=== PATIENT | female | born 1945 | race Caucasian/White ===

== ENCOUNTER 2020-08-20 09:51 | Outpatient (CLI) | payer MEDICARE, MEDICAID, SELFPAY ==
--- NOTE | 2020-08-20 12:21 | ONC CON_ITS ---
Dr. Kumari New Patient Note Patient: Donita Cam Unit #: [id number]: 1945 Dicatated By: Pierre Kumari M.D.Date of Visit: Aug 20, 2020 Onc MED New Patient/Consult Referring Physician: Wu Phelan Chief Complaint: Hepatocellular cancer. History of Present Illness: This is a 75-year-old woman who was recently confirmed to have metastatic hepatocellular carcinoma by biopsy of an abdominal wall nodule. 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 She was then found on surveillance CT scan in June 2019 to have a 1.7 cm segment 8 liver lesion. Biopsy of the liver on 07/17/2019 showed moderately differentiated hepatocellular carcinoma. She underwent intraoperative ablation of the liver lesion on 08/06/2019. Her surveillance CT scans of the neck and chest on 08/04/2020 showed no evidence of disease. MRI of the abdomen on 08/05/2020 showed increase in a segment 2 liver lesion and a new segment 7 lesion, suspicious for disease progression. Also noted was increasing size of a right abdominal wall lesion. Biopsy of the abdominal wall soft tissue on 08/12/2020 was positive for metastatic hepatocellular carcinoma. She had a follow-up visit with her medical oncologist at [facility], Dr. Mckenna Cruz, on 08/18/2020. She was recommended to begin palliative treatment with atezolizumab in combination with bevacizumab. She is seen here today because she would like to receive her treatment closer to home. She complains that she has been feeling tired. Some of that she attributes to being very anxious and not sleeping well. Her ECOG score is 1. Her appetite has not been good. Her weight had dropped to as low as 81 pounds following initial treatment for the hepatocellular cancer, but she had regained up to 95 pounds. She is now back down a few pounds. She does not have fever or night sweats. She says she is usually freezing to . 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 She does tend to have to cough up a lot of saliva, but she does not have difficulty swallowing. She has some shortness of breath associated with underlying COPD. She does not complain of chest pain. She has not been having nausea. She does have acid reflux, but it is adequately managed with medication. Bowel and bladder function have been okay other than she occasionally does not empty her bladder completely. She has some joint pain, mainly in the hands. She does not complain of headache. She sometimes has dizzy spells. She tends to get numbness/tingling in her feet when she is driving longer distances. She has no other focal neurologic symptoms. She is having significant anxiety and depression. Past Medical History: She has been treated for squamous cell carcinoma of the supraglottic larynx and for hepatocellular carcinoma. Her other medical history includes anxiety/depression, chronic obstructive pulmonary disease, degenerative arthritis, gastroesophageal reflux disease, and right carpal tunnel syndrome. Past Surgical History: Her surgical/procedural history includes bilateral cataract excisions, bladder sling, tubal ligation, colonoscopy in 2019, and hysterectomy/bilateral salpingo-oophorectomy in 1990. Medications: Albuterol Sulfate 2 Puff(s) (of 108 (90 base) mcg/act) Aerosol Powder, Breath Activated Inhalation q 6 hours PRN, Amitriptyline HCl 1 (25 mg) Tablet Oral ac pm, Centrum 1 Tablet, chewable Oral daily, Famotidine 1 (40 mg) Tablet Oral daily, Meclizine HCl 1 (25 mg) Tablet Oral q 6 to 8 hours PRN, Omeprazole 1 (20 mg) Tablet, enteric coated Oral daily, Stiolto Respimat (2.5-2.5 mcg/act) Aerosol, solution Inhalation daily, Vitamin E 1 (1000 Units) Tablet, chewable Oral daily Allergies: No Known Allergies. Social History: Ms. Cam is . She has history of smoking 1 pack of cigarettes daily. She had cut down to 1/2 pack/day, but she recently increased again. She had previously drank alcohol on weekends, but she quit that at least 10 to 15 years ago. Family History: Ms. Cam's mother at age 67: stroke. Ms. Cam's father at age 62: lung cancer. Ms. Cam has 1 sister who is : lung cancer. Father of lung cancer at age 63. Mother of stroke at age 68. A sister of lung cancer at age 42. A son at age 33, apparently with multiorgan failure, specific underlying cause not determined. Review Of Symptoms: Constitutional - She has generally not been feeling well. She is very tired. She is able to do some light housework. Her appetite has decreased and her weight is stable. No fever, night sweats, or hot flashes. She has frequent chills. ECOG score is 1, Eyes - No recent change in vision, ENMT - She developed hearing loss following her chemotherapy. She also complains of tinnitus. She has sinus congestion/drainage. She has dry mouth. No sore throat or difficulty swallowing. She has hoarseness, Hematologic/Lymphatic - She bruises easily, Respiratory - She gets short of breath with an type of activity. She has a chronic cough. No pleuritic pain or hemoptysis, Cardiovascular - No angina pain. No palpitations, Gastrointestinal - No nausea or vomiting. Her heartburn is adequately managed with famotidine and omeprazole. No diarrhea or constipation. No blood in the stool or black stools, Genitourinary (F) - No dysuria or hematuria. No urinary frequency. No urgency or incontinence. She has frequent episodes of her bladder not completely emptying, Musculoskeletal - She has some joint pain, mainly in her hands, Integumentary - No skin eruption, Neurologic - No headache or dizziness. She sometimes has numbness/tingling in her feet. No other focal neurologic symptoms, Psychiatric - She has a lot of anxiety, she sometimes has amitriptyline. She also has depression. She does not sleep well. Vital Signs: Performed on Aug 20, 2020 11:09: 0, 17.80 (LOW), 1.37 sq.m, 61 in, 93 % (LOW), 99 /min, 17 /min, 120/71 mm(hg), 97.5 F (LOW), and 94.2 lbs (HIGH). Physical Examination: Constitutional - She looks pretty good generally, Eyes - Sclerae nonicteric. Conjunctivae clear, ENMT - No lesions noted in the oral cavity, Neck - No mass or thyromegaly, Hematologic/Lymphatic - No cervical, clavicular, or axillary adenopathy, Respiratory - Lungs are clear with diminished air movement bilaterally, Cardiovascular - Heart rhythm is regular. There is no murmur, gallop, or rub noted, Abdomen - Soft and non-tender. There is a small subcutaneous nodule palpable in the medial aspect of the right upper quadrant. Liver and spleen are not enlarged. There is no abdominal mass or ascites noted and there is no inguinal adenopathy, Back/Spine - No spine or CVA tenderness noted, Extremities - No edema. Dorsalis pedis pulses are palpable bilaterally, Integumentary - No rashes. No suspicious skin lesions noted, Neurologic - No focal neurologic deficits noted. Problem List: 1. Metastatic hepatocellular carcinoma with biopsy-proven involvement in the right anterior abdominal wall. There is also suspected recurrence in the liver by MRI. 2. She had undergone intraoperative ablation of the primary hepatocellular carcinoma in July 2019. 3. 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 She completed radiation in December 2018. 4. COPD. 5. GERD. 6. Degenerative arthritis. 7. Anxiety/depression. Problems Addressed with this Encounter and Plan: 1. Metastatic hepatocellular carcinoma with biopsy-proven involvement in the right anterior abdominal wall. There is also suspected recurrence in the liver by MRI. She has been recommended to begin a trial of palliative systemic therapy with atezolizumab in combination with bevacizumab. She is in need of Port-A-Cath for venous access, and I have arranged for her to see Dr. Short today for surgical consultation. She will return for cycle 1 of atezolizumab soon as the port is in place. Bevacizumab will be added with cycle 2. I again reviewed side effects associated with both treatments, though she has been through this already with Dr. Cruz. 2. She has significant anxiety/depression. I will have her start citalopram 10 mg daily and she also will be given a prescription for alprazolam 0.25 mg to take up to 3 times daily as needed. Signed By: Pierre Kumari M.D. <<Signature on File>>
[2020-08-21 14:07] LABS: Coronavirus Test Green County Not Detected
== END 2020-08-20 09:52 | disposition home or self-care (01) ==
LOC: ONCMED 09:57
PROVIDERS: Family Provider Physician Assistant Medical; PCP Physician Assistant Medical; Visit Provider Internal Medicine Medical Oncology
DX: C22.0 Liver cell carcinoma (principal); C79.89 Secondary malignant neoplasm of other specified sites; C32.1 Malignant neoplasm of supraglottis; Z20.822 Contact with and (suspected) exposure to COVID-19; J44.9 Chronic obstructive pulmonary disease, unspecified; K21.9 Gastro-esophageal reflux disease without esophagitis; F41.8 Other specified anxiety disorders; F17.210 Nicotine dependence, cigarettes, uncomplicated; Z92.3 Personal history of irradiation; Z92.21 Personal history of antineoplastic chemotherapy; Z79.899 Other long term (current) drug therapy
CPT/HCPCS: 87635; 99204

== ENCOUNTER 2020-08-25 09:49 | Day surgery (SDC) | payer MEDICARE, MEDICAID, SELFPAY ==
[2020-08-22 11:52] VITALS: BMI 17.5
--- NOTE | 2020-08-25 | SCC_ITS ---
Procedure Done: Right subclavian vein PowerPort placement 6.6 seconds of fluoroscopic guidance, for a cumulative dose of 0.39 mGy, was provided to Dr. Short by the radiology department. C-arm images of the chest were saved for the patient's permanent record. [facility]
--- NOTE | 2020-08-25 09:59 | SC_ITS ---
WS: [id number] INTRAOPERATIVE TECHNIQUE: 2 Spot fluoroscopic images for intraoperative purposes. FLUOROSCOPY TIME: 6.6 seconds CLINICAL INFORMATION: Powerport Placement COMPARISON: None. FINDINGS: Right Port-A-Cath with tip in distal SVC. No pneumothorax. SC/C-arm FL for CVA [id number] IMPRESSION: Images obtained for intraoperative purposes.
[2020-08-25 10:05] VITALS: BP 134/80; PULSE 86; RESP 18; TEMP 36.5; O2SAT 96
[2020-08-25] MEDS: sodium chloride 0.9% 1,000 ML 30 ML IV (10:33)
--- NOTE | 2020-08-25 11:33 | ANES.PREANE2 ---
Pre-Anesthetic Assessment Pre-Anesthetic Assessment: Height/Weight: Height 1.55 m Weight 42.184 kg Temp Pulse Resp BP Pulse Ox 97.7 F 86 18 134/80 96 08/25/20 10:05 08/25/20 10:05 08/25/20 10:05 08/25/20 10:05 08/25/20 10:05 Preop Diagnosis: Hepatocellular carcinoma Proposed Procedure: Operation Date: 08/25/20 12:00 Proposed Procedures p Portacath Placement 08765 C22.0(Not Applicable) - Odell Short MD Was Beta Wild taken within 24 hours: N/A Last intake: Intake Last Liquid Date 08/24/20 Last Liquid Time 22:00 Last Solid Date 08/24/20 Last Solid Time 22:00 Social: Social History: Tobacco and No alcohol Exam: Pre-Anes Outpt Exam: alert, oriented x 3 and regular rate & rhythm Additional Exam Findings (including area of procedure): decreased, rhonchi Airway: Submandibular: Other (H/o head and neck radiation) Cervical ROM: WNL MP: 2 Additional comments: upper edentulous Pulmonary: Pulmonary: COPD Neuropsych: Neuropsych: Anxiety Anesthetic Plan: ASA status: 3 Anesthesia: MAC Risk of > 500 ml blood loss (7ml/kg in children): No Meds/Allergies Current Medications: Current Medications Generic Name Dose Route Start Last Admin Trade Name Freq PRN Reason Stop Dose Admin Sodium Chloride 1,000 mls @ 30 ml s/hr 08/25/20 10:00 08/25/20 10:33 Sodium Chloride 0.9% IV 08/26/20 09:59 30 mls/hr .Q24H BREANNA Administration PFSH Anesthesia PFSH: Social History Smoking and tobacco status: current every day smoker Second hand smoke exposure: No Alcohol intake: never Lives independently: Yes Data Anesthesia Cardiac Studies: No Data to Display
--- NOTE | 2020-08-25 11:53 | W.PM.OPSUD ---
Surgery/Procedure H&P Update DATE OF PROCEDURE: August 25, 2020 DATE H&P PERFORMED: 08/20/20 H&P UPDATE INFORMATION: I have reviewed H&P completed within last 30 days, I have examined patient prior to procedure and No changes to prior documentation PREOP DIAGNOSIS: Hepatocellular carcinoma PRIMARY INDICATION FOR PROCEDURE: The same PLANNED PROCEDURE: Operation Date: 08/25/20 12:00 Proposed Procedures p Portacath Placement 39297 C22.0(Not Applicable) - Odell Short MD
[2020-08-25] MEDS: lidocaine 2% INJ 20 mL INJECTION (12:44)
[2020-08-25] MEDS: heparin, porcine 1,000 unit/mL INJ 10 mL 10000 UNIT INJECTION (12:45)
--- NOTE | 2020-08-25 12:46 | P.OP_ITS ---
Operative Report Date of procedure: August 25, 2020 Pre-op Diagnosis: Hepatocellular carcinoma Post-op diagnosis: same Procedure Done: Right subclavian vein PowerPort placement under fluoroscopic guidance with interpretation of the fluoroscopy was done by me through the whole entire procedure. Implants: Right subclavian vein PowerPort placement Surgeon: Odell Short Machine Pecan Gatherer: Jess Hope Circulating nurse Cori Anesthesia: MAC (metal engineering process worker Mariposa) Estimated blood loss (mL): 5 Condition: stable Disposition: same day Brief History: Plan of care; After thorough history physical examination and reviewing the chart and reviweing the images with my personal intrepretation.I counseled the patient for Port-A-Cath placement, indications, risks including pneumothorax that may require Chest tube(s) placement and potential injury of major vascular structures that may require Thoractomy, benefits,indications and alternatives were all discussed with the patient, patient understands and is interested to proceed. Rationale was carefully and clearly discussed with the patient.Appropriate informed consent have been reviewed and signed. Procedure: Patient was identified in the holding area and taken to the operative room and placed in supine position IV propofol was given by the anesthesia provider ,both arms were tucked,Time-out was done verifying the patient's name/date of /planned procedure and destination after the procedure, all were in agreement. SCDs confirmed to be functioning, preoperative antibiotics administered per protocol, and beta wood protocol was confirmed, appropriate positioning of the patient was done by me. Medications were reviewed to assess for anticoagulant usage. Risks and benefits and prevention of central line associated blood stream infection (CLABSI) were discussed with the patient/CPOA, and a consent was obtained. Monitors were in place and monitored throughout the procedure. All necessary supplies were available prior to start. Hand hygiene was completed prior to starting. Maximum barrier technique was utilized including a sterile gown, sterile gloves with a hat and mask. Site was was prepped with [chlorhexidine] and a full body drape was placed. 5 mL of 2% lidocaine was injected into the skin with a 25 gauge needle. Prep& drape was done under the usual sterile technique, lidocaine 2% was injected at the site of the stick, started by the Right subclavian stick that retrieved venous blood was obtained from the first stick, a guidewire was then threaded and under the guidance of fluoroscopy position was confirmed to be in the IVC and my interpretation, there was no PVC changes, at that point the guidewire was secured to the drapes with a hemostat and the needle was taken out, attention was then deviated towards creation of a pocket for the port were lidocaine 2% was injected using an 15 blade knife skin incision was created dissection using the Bovie to create a pocket for the Port-A-Cath to be accommodated, hemostasis was secured, after the port being appropriately flushed it was inserted into the pocket and a tunneler was used to accommodate the catheter of the port cath to be delivered through the incision first created at the site of the stick, at that point under fluoroscopy an estimated length was measured for the catheter and was cut at the designed level, followed by that a dilator with the sheath introduced onto the guidewire the dilator and the wire were retrieved and the catheter of the port was introduced via the sheath where it was peeled off and the catheter maintained to be in the SVC that was confirmed with fluoroscopy, and the fluoroscopy interpretation was done by me throughout the entire procedure. The port was kept in its pocket,3-0 Vicryl deep subdermal interrupted sutures, skin was then closed by 4-0 Monocryl as subcuticular closure. The stick site was closed by 3-0 Vicryl and surgical glue was used followed by dressing. Patient tolerated the procedure well was taken to the recovery area Count was correct at the end of the procedure I was present for the whole entire procedure Position of the catheter was checked with a postoperative chest x-ray and it was in good position without evidence of pneumothorax
--- NOTE | 2020-08-25 12:50 | XRR_ITS ---
PROCEDURE INFORMATION: Exam: XR Chest, 1 View Exam date and time: 08/25/2020 1:10 PM Age: 75 years old Clinical indication: Device placement; Other: Subclavian powerport placement; Additional info: Status post right subclavian powerport placement TECHNIQUE: Imaging protocol: XR of the chest Views: 1 view. COMPARISON: No relevant prior studies available. FINDINGS: Lungs: Unremarkable. No consolidation. Pleural spaces: Unremarkable. No pleural effusion. No pneumothorax. Heart/Mediastinum: Unremarkable. No cardiomegaly. Bones/joints: There is a thoracolumbar spine scoliosis. There are bilateral old healing clavicle the fractures. There is a right subclavian catheter whose tip is in the superior vena cava. XR/XR chest 1V portable [id number] IMPRESSION: There is a right subclavian catheter whose tip is in the superior vena cava.
[2020-08-25 13:00] VITALS: BP 113/64; PULSE 77; RESP 18; TEMP 36.3; O2SAT 92
[2020-08-25 13:39] VITALS: BP 150/83; PULSE 74; RESP 18; TEMP 36.5; O2SAT 98
[2020-08-25 14:00] LABS: Add Urine Microscopic? NO
[2020-08-25 14:25] LABS: Bilirubin Urine Neg (Negative); Blood Urine Neg (Negative); Glucose Urine UA Norm (Normal); Ketones Urine Negative (Negative); Leukocyte Esterase Urine Negative (Negative); Nitrate Urine Negative (Negative); Protein Urine Neg (Negative); Specific Gravity, Urine 1.015 (1.005-1.030); Urine Appearance Clear (CLEAR); Urine Color Yellow (Yellow); Urobilinogen Urine Norm (Negative); pH Urine 6 (5-7)
[2020-08-25 16:14] LABS: Basophils % 0.7 %; Eosinophils # 0.1 10^3/uL (0.0-0.8); Hemoglobin 13.1 g/dL (11.5-15.3); Lymphocytes # 2.3 10^3/uL (0.8-4.8); Lymphocytes % 39.6 %; Mean Platelet Volume 10.8 fL (7.4-10.4); Monocytes # 0.5 10^3/uL (0.2-0.9); Monocytes % 7.8 %; Neutrophils # 2.93 10^3/uL (1.8-7.7); Neutrophils % 50.7 %; Nucleated Red Blood Cells % 0 %; Platelet Count 179 10^3/cmm (130-400); Red Cell Distribution Width 13.1 % (12.1-15.1); White Blood Count 5.8 10^3/uL (4.0-10.0)
--- NOTE | 2020-08-25 16:15 | ANE.PACU2 ---
Inpatient post-anesthesia follow up: Airway intact: Yes Vital signs: Temperature 97.7 F Pulse Rate 74 Respiratory Rate 18 Blood Pressure 150/83 Pulse Oximetry 98 Oxygen Delivery Me thod Room Air Oxygen Flow Rate Fraction of Inspir ed Oxygen Hydration adequate: Yes Nausea and vomiting: No Pain level: 2 Mental status: Baseline
[2020-08-25 16:33] LABS: Thyroid Stimulating Hormone 9.19 uIU/mL (0.27-4.20); Tumor Marker Alpha Fetoprotein 104.9 ng/mL (0-8.3)
[2020-08-25 16:44] LABS: Alanine Aminotransferase 12 U/L (0-33); Alkaline Phosphatase 68 IU/L (35-105); Anion Gap 11.2 (5-19); Aspartate Amino Transferase 15 U/L (0-32); Blood Urea Nitrogen 11 mg/dL (8-23); Calcium 8.4 mg/dL (8.5-10.5); Carbon Dioxide 29 mmol/L (22-29); Chloride 104 mmol/L (98-107); Globulin 2.5 g/dL (1.3-4.6); Glucose 93 mg/dL (65-115); Osmolality Calculated 289 mOsm/kg (285-295); Potassium 4.2 mmol/L (3.5-5.1); Sodium 140 mmol/L (136-145); Total Bilirubin 0.2 mg/dL (0.15-1.2); Total Protein 6.5 g/dL (6.6-8.7)
== END 2020-08-25 14:03 | disposition home or self-care (01) ==
PROVIDERS: Internal Medicine Medical Oncology; Family Provider Physician Assistant Medical; PCP Physician Assistant Medical; Visit Provider Surgery
PROC: (CPT 36561; principal; 2020-08-25 12:00)
DX: C22.0 Liver cell carcinoma (principal); J44.9 Chronic obstructive pulmonary disease, unspecified; F41.9 Anxiety disorder, unspecified; F17.210 Nicotine dependence, cigarettes, uncomplicated
CPT/HCPCS: 36561; 12345; 71045; 77001; 80053; 81003; 82105; 84443; 85025; C1788; J0690; J1644; J2250; J2405; J2704; J3010; J7030

== ENCOUNTER 2020-09-08 13:25 | Outpatient (CLI) | payer MEDICARE, MEDICAID, SELFPAY ==
[2020-09-08 14:43] LABS: Basophils % 0.6 %; Eosinophils # 0.1 10^3/uL (0.0-0.8); Eosinophils % 1.8 %; Hematocrit 38.3 % (37.0-47.0); Hemoglobin 12.7 g/dL (11.5-15.3); Lymphocytes # 1.5 10^3/uL (0.8-4.8); Mean Corpuscular HGB Conc 33.2 g/dL (30.0-36.0); Mean Corpuscular Volume 96.5 fL (81-99); Mean Platelet Volume 10.2 fL (7.4-10.4); Monocytes # 0.6 10^3/uL (0.2-0.9); Monocytes % 10.1 %; Neutrophils # 3.84 10^3/uL (1.8-7.7); Neutrophils % 62.3 %; Nucleated Red Blood Cells % 0 %; Platelet Count 197 10^3/cmm (130-400); Red Blood Count 3.97 10^6/uL (4.1-5.3); White Blood Count 6.2 10^3/uL (4.0-10.0)
[2020-09-08 14:58] LABS: Alanine Aminotransferase 11 U/L (0-33); Albumin Level 4.3 g/dL (3.5-5.2); Alkaline Phosphatase 65 IU/L (35-105); Anion Gap 12.4 (5-19); Aspartate Amino Transferase 17 U/L (0-32); Blood Urea Nitrogen 6 mg/dL (8-23); Carbon Dioxide 29 mmol/L (22-29); Chloride 102 mmol/L (98-107); Globulin 2.5 g/dL (1.3-4.6); Glucose 119 mg/dL (65-115); Osmolality Calculated 289 mOsm/kg (285-295); Potassium 3.4 mmol/L (3.5-5.1); Sodium 140 mmol/L (136-145); Total Bilirubin 0.2 mg/dL (0.15-1.2); Total Protein 6.8 g/dL (6.6-8.7)
[2020-09-08] MEDS: sodium chloride 0.9% 250 ML 75 ML IV (16:20)
--- NOTE | 2020-09-14 20:21 | ONC FU_ITS ---
[facility] Patient Note Patient: Donita Cam Unit #: [id number]: 1945 Dictated By: Khushboo MonsivaisDate of Visit: Sep 08, 2020 Onc MED Follow-Up/Prog Note Chief Complaint: Hepatocellular cancer. History of Present Illness: Ms Cam is a 75-year-old woman who was recently confirmed to have metastatic hepatocellular carcinoma by biopsy of an abdominal wall nodule. 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 She was then found on surveillance CT scan in June 2019 to have a 1.7 cm segment 8 liver lesion. Biopsy of the liver on 07/17/2019 showed moderately differentiated hepatocellular carcinoma. She underwent intraoperative ablation of the liver lesion on 08/06/2019. Her surveillance CT scans of the neck and chest on 08/04/2020 showed no evidence of disease. MRI of the abdomen on 08/05/2020 showed increase in a segment 2 liver lesion and a new segment 7 lesion, suspicious for disease progression. Also noted was increasing size of a right abdominal wall lesion. Biopsy of the abdominal wall soft tissue on 08/12/2020 was positive for metastatic hepatocellular carcinoma. She had a follow-up visit with her medical oncologist at [facility], Dr. Mckenna Cruz, on 08/18/2020. She was recommended to begin palliative treatment with atezolizumab in combination with bevacizumab. She was seen by Dr Kumari on August 20, 2020 because she would like to receive her treatment closer to home. She had noted that her weight had dropped to as low as 81 pounds following initial treatment for the hepatocellular cancer, but she had regained up to 95 pounds. She is now back down a few pounds. 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 She does tend to have to cough up a lot of saliva, but she does not have difficulty swallowing. She has some shortness of breath associated with underlying COPD. She does have acid reflux, but it is adequately managed with medication. Bowel and bladder function have been okay other than she occasionally does not empty her bladder completely. She has some joint pain, mainly in the hands. She tends to get numbness/tingling in her feet when she is driving longer distances. She was having significant anxiety and depression. She was started on citalopram 10 mg daily and states that this has been helping. She is also using alprazolam 0.25 mg up to 3 times a day as needed. She states that she has really felt much better since starting these medications. She states that she did have Port-A-Cath placement with Dr. Short on 08/25/2020. She states it is healing well. Mrs. Cam is here today for follow-up. She is due to start her first dose of Tecentriq. She is aware that we will add Avastin with cycle 2. She denies any fever or chills. She states that her acid reflux continues to be controlled well. She states her appetite is better. She denies any new pain. Her activity has improved slowly but she states she is actually doing things around the house and outside when the weather is good. She denies any diarrhea or constipation. She denies any new shortness of breath orthopnea. She denies any chest pain or palpitations. She has had no nausea. Her sleeping overall is better as well. Her ECOG is 1. Past Medical History: Anxiety/depression Chronic obstructive pulmonary disease Degenerative arthritis Gastroesophageal reflux disease Right carpal tunnel syndrome Past Surgical History: Bilateral cataract excisions Bladder sling Tubal ligation Colonoscopy in 2019 Hysterectomy/bilateral salpingo-oophorectomy in 1990 Allergies: No Known Allergies. Medications: Albuterol Sulfate 2 Puff(s) (of 108 (90 base) mcg/act) Aerosol Powder, Breath Activated Inhalation q 6 hours PRN Amitriptyline HCl 1 (25 mg) Tablet Oral ac pm Centrum 1 Tablet, chewable Oral daily Famotidine 1 (40 mg) Tablet Oral daily Meclizine HCl 1 (25 mg) Tablet Oral q 6 to 8 hours PRN Omeprazole 1 (20 mg) Tablet, enteric coated Oral daily Stiolto Respimat (2.5-2.5 mcg/act) Aerosol, solution Inhalation daily Vitamin E 1 (1000 Units) Tablet, chewable Oral daily Family History: Ms. Cam's mother at age 67: stroke. Ms. Cam's father at age 62: lung cancer. Ms. Cam has 1 sister who is : lung cancer. Father of lung cancer at age 63. Mother of stroke at age 68. A sister of lung cancer at age 42. A son at age 33, apparently with multiorgan failure, specific underlying cause not determined. Social History: Ms. Cam is . She is a daily smoker who has smoked 1.0 pack/day for 55 years. She has no history of drinking. She has indicated exposure to the following products: cigarettes. She has history of smoking 1 pack of cigarettes daily. She had cut down to 1/2 pack/day, but she recently increased again. She had previously drank alcohol on weekends, but she quit that at least 10 to 15 years ago. Review Of Symptoms: Constitutional Denies fevers, chills, night sweats, excessive fatigue or weight loss. Allergic/Immunologic No reactions. Eyes Denies significant visual changes. No diplopia. No amaurosis. ENMT Denies changes in hearing, sore throat, mouth sores, difficulty or changes in swallowing ability, and/or sinus drainage. Hematologic/Lymphatic Denies easy bruising or bleeding. The patient denies any tender or palpable lymph nodes. Respiratory Denies dyspnea on exertion, chest pain, cough or hemoptysis. Denies orthopnea. Cardiovascular Denies anginal chest pain, palpitations or orthopnea. Gastrointestinal Denies nausea, vomiting, diarrhea, GI bleeding, or constipation. Denies change in bowel habits and/or stool color, no heartburn or early satiety. Genitourinary (F) No hematuria, hesitancy, incontinence, vaginal bleeding, discharge or other problems with urination. Musculoskeletal Denies joint pain, swelling or redness. No decreased range of motion. Integumentary Denies chronic rashes, inflammation, ulcerations or skin changes. Neurologic Denies headache, blurred vision, and no areas of focal weakness or numbness. Normal gait. No sensory problems. Psychiatric Denies insomnia, depression, siddharth or mood swings. Vital Signs: Performed on Sep 08, 2020 17:20 Height - 61.00 in Temperature - 98.2 F (LOW) Pulse - 75 /min Respiration - 18 /min BP - 120/70 mm(hg) O2 Sat - 95 % (LOW) Pain - 0 Fatigue - 0 Performed on Sep 08, 2020 15:26 Height - 61.00 in Weight - 92.8 lbs (LOW) BSA - 1.36 sq.m BMI - 17.53 (LOW) Temperature - 99.5 F (HIGH) Pulse - 86 /min Respiration - 18 /min BP - 122/72 mm(hg) O2 Sat - 94 % (LOW) Pain - 0 Fatigue - 2,1 - No physically strenuous activity, but ambulatory and able to carry out light or sedentary work (e.g. office work, light house work). (ECOG) Physical Examination: Constitutional Alert, oriented, no acute distress. Skin pink, warm and dry. Head Normocephalic; atraumatic. Eyes Conjunctivae and sclerae are clear and without icterus. Pupils are reactive and equal. Neck Supple without masses or thyromegaly. No jugular venous distension. Hematologic/Lymphatic No petechiae or purpura. No tender or palpable lymph nodes in the cervical or supraclavicular areas. Respiratory Lungs are clear to auscultation without rhonchi or wheezing. Cardiovascular Regular rate and rhythm of heart without murmurs,clicks, gallops or rubs. Abdomen Non-tender, non-distended, no masses or ascites. Good bowel sounds noted in all quads. No guarding or rebound tenderness. No pulsatile masses. Back/Spine Non-tender to palpation. Extremities No visible deformities, no cyanosis, clubbing or edema. Musculoskeletal No tenderness or swelling, normal range of motion without obvious weakness. Integumentary No rashes or lesions. Neurologic No sensory or motor deficits, normal cerebellar function, normal gait. Psychiatric Alert and oriented times three. Coherent speech. Verbalizes understanding of our discussions today. Laboratory:Test performed on Sep 08, 2020 14:15 Sodium 140 mmol/L Potassium 3.4 mmol/L Chloride 102 mmol/L CO2 29 mmol/L Anion Gap 12.4 BUN 6 mg/dL Creatinine 0.4 mg/dL Cr Clearance (Est) 83.2300 mL/min Glucose 119 mg/dL Osmolality - Calculated 289 mOsm/kg Calcium 9.0 mg/dL Protein, Total 6.8 g/dL Albumin 4.3 g/dL Globulin 2.5 g/dL Bilirubin, Total 0.2 mg/dL ALT (SGPT) 11 U/L AST (SGOT) 17 U/L Alkaline Phosphatase 65 IU/L WBC 6.2 10 3/uL RBC 3.97 10 6/uL HGB 12.7 g/dL HCT 38.3 % MCV 96.5 fL MCH 32.0 pg MCHC 33.2 g/dL RDW 13.0 % Platelet Count 197 10 3/cmm MPV 10.2 fL Neutrophils 3.84 10 3/uL Lymphocytes 1.5 10 3/uL Monocytes 0.6 10 3/uL Eosinophils 0.1 10 3/uL Basophils 0.0 10 3/uL Neutrophil % 62.3 % Lymphocyte % 25.0 % Monocyte % 10.1 % Eosinophil % 1.8 % Basophils % 0.6 % NRBC % 0 % Impression: 1. Metastatic hepatocellular carcinoma with biopsy-proven involvement in the right anterior abdominal wall. There is also suspected recurrence in the liver by MRI. 2. She had undergone intraoperative ablation of the primary hepatocellular carcinoma in July 2019. 3. 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 She completed radiation in December 2018. 4. COPD. 5. GERD. 6. Degenerative arthritis. 7. Anxiety/depression. Plan: PROBLEMS ADDRESSED TODAY 1. Metastatic hepatocellular carcinoma with biopsy-proven involvement in the right anterior abdominal wall. There is also suspected recurrence in the liver by MRI. She has been recommended to begin a trial of palliative systemic therapy with atezolizumab in combination with bevacizumab. She had placement of arit subclavian Power Port-A-Cath for venous access by Dr Short on 08/25/2020. A. Proceed with cycle 1 of atezolizumab today. Bevacizumab will be added with cycle 2. B. Standard antiemetics at home for nausea as needed. C. Labs from today reviewed in detail discussed with Mrs. Cam and a copy was given to her. White count 6.2, hemoglobin 12.7, platelets 197 ANC is 3840. Potassium 3.4 random glucose 119 creatinine 0.4 LFTs are normal. Her weight is documented at 92.8 pounds today. 2. She has significant anxiety/depression. A. Currently controlled with citalopram 10 mg daily and alprazolam 0.25 mg 3 times daily. B. She denies any intent to harm herself or others. She states she is feeling much better overall. 3. Follow-up plan A. We will plan to see her back in 3 weeks with CBC CMP and baseline UA for Avastin monitoring. B. Mrs. Cam has been encouraged to contact us in the interim should questions or problems arise. 4. Education regarding treatment plan: Specific side effects of Tecentriq discussed included but not limited to: Infusion reactions such as anaphylaxis, hives, shortness of breath, difficulty swallowing, fever, chills, hypotension hypertension, tremors/shakes, and anxiety amongst others Pneumonitis: new or worsening cough; chest pain; and shortness of breath. Colitis: diarrhea or more bowel movements than usual; blood in stools or dark, tarry, sticky stools; and severe stomach area (abdomen) pain or tenderness. Hepatitis: jaundice; severe nausea or vomiting; pain on the right side of the abdomen; drowsiness; dark urine; bleeding or bruise more easily than normal. Nephritis and kidney failure: including decrease in the amount of urine; hematuria; lower extremity edema; and loss of appetite. Pancreatitis; hyperglycemia. Thyroid and pituitary changes that may include: headaches that will not go away or unusual headaches; extreme tiredness, weight gain or weight loss; changes in mood or behavior, such as decreased sex drive, irritability, or forgetfulness; dizziness or fainting; hair loss; feeling cold; constipation; and voice gets deeper. Rash; changes in eyesight; severe or persistent muscle or joint pains; and severe muscle weakness. Greater than 50 minutes was spent on this visit in review of records and plan of care prior to the visit, face to face in review of plan of care, side effect identification and management with Ms Cam and post visit documentation. Signed By: Khushboo Monsivais-, AOCNP Pierre Kumari MD <<Signature on File>>
== END 2020-09-08 13:26 | disposition home or self-care (01) ==
LOC: ONCMED 13:29
PROVIDERS: PCP Physician Assistant Medical; Visit Provider Internal Medicine Medical Oncology
DX: Z51.11 Encounter for antineoplastic chemotherapy (principal); C22.0 Liver cell carcinoma; C79.89 Secondary malignant neoplasm of other specified sites; C32.1 Malignant neoplasm of supraglottis; F17.210 Nicotine dependence, cigarettes, uncomplicated; F41.8 Other specified anxiety disorders; Z79.899 Other long term (current) drug therapy
CPT/HCPCS: 80053; 85025; 96413; 99215; J7050; J9022

== ENCOUNTER 2020-09-18 05:53 | Outpatient (CLI) | payer MEDICARE, MEDICAID, SELFPAY ==
[2020-09-18 09:07] LABS: Basophils % 0.5 %; Eosinophils # 0.1 10^3/uL (0.0-0.8); Eosinophils % 1.1 %; Hematocrit 39.7 % (37.0-47.0); Hemoglobin 12.9 g/dL (11.5-15.3); Lymphocytes # 1.4 10^3/uL (0.8-4.8); Lymphocytes % 22.2 %; Mean Corpuscular HGB Conc 32.5 g/dL (30.0-36.0); Mean Corpuscular Hemoglobin 32.2 pg (28.0-34.0); Monocytes # 0.6 10^3/uL (0.2-0.9); Monocytes % 9.2 %; Neutrophils # 4.06 10^3/uL (1.8-7.7); Neutrophils % 66.7 %; Nucleated Red Blood Cells % 0 %; Platelet Count 202 10^3/cmm (130-400); Red Blood Count 4.01 10^6/uL (4.1-5.3); Red Cell Distribution Width 13.2 % (12.1-15.1); White Blood Count 6.1 10^3/uL (4.0-10.0)
[2020-09-18 09:28] LABS: Alanine Aminotransferase 11 U/L (0-33); Albumin Level 4.3 g/dL (3.5-5.2); Alkaline Phosphatase 79 IU/L (35-105); Anion Gap 11.8 (5-19); Aspartate Amino Transferase 19 U/L (0-32); Blood Urea Nitrogen 6 mg/dL (8-23); Calcium 9.2 mg/dL (8.5-10.5); Carbon Dioxide 29 mmol/L (22-29); Chloride 97 mmol/L (98-107); Globulin 2.5 g/dL (1.3-4.6); Glucose 95 mg/dL (65-115); Osmolality Calculated 275 mOsm/kg (285-295); Potassium 3.8 mmol/L (3.5-5.1); Sodium 134 mmol/L (136-145); Thyroid Stimulating Hormone 4.58 uIU/mL (0.27-4.20); Total Bilirubin 0.4 mg/dL (0.15-1.2); Total Protein 6.8 g/dL (6.6-8.7)
--- NOTE | 2020-09-18 10:58 | ONC FU_ITS ---
[facility] Patient Note Patient: Donita Cam Unit #: [id number]: [id number] Dictated By: Khushboo MonsivaisDate of Visit: Sep 18, 2020 Onc MED Follow-Up/Prog Note Chief Complaint: Hepatocellular cancer. History of Present Illness: Ms Cam is a 75-year-old woman who was recently confirmed to have metastatic hepatocellular carcinoma by biopsy of an abdominal wall nodule. 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 She was then found on surveillance CT scan in June 2019 to have a 1.7 cm segment 8 liver lesion. Biopsy of the liver on 07/17/2019 showed moderately differentiated hepatocellular carcinoma. She underwent intraoperative ablation of the liver lesion on 08/06/2019. Her surveillance CT scans of the neck and chest on 08/04/2020 showed no evidence of disease. MRI of the abdomen on 08/05/2020 showed increase in a segment 2 liver lesion and a new segment 7 lesion, suspicious for disease progression. Also noted was increasing size of a right abdominal wall lesion. Biopsy of the abdominal wall soft tissue on 08/12/2020 was positive for metastatic hepatocellular carcinoma. She had a follow-up visit with her medical oncologist at [facility], Dr. Mckenna Cruz, on 08/18/2020. She was recommended to begin palliative treatment with atezolizumab in combination with bevacizumab. She was seen by Dr Kumari on August 20, 2020 because she would like to receive her treatment closer to home. She had noted that her weight had dropped to as low as 81 pounds following initial treatment for the hepatocellular cancer, but she had regained up to 95 pounds. She is now back down a few pounds. 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 She does tend to have to cough up a lot of saliva, but she does not have difficulty swallowing. She has some shortness of breath associated with underlying COPD. She does have acid reflux, but it is adequately managed with medication. Bowel and bladder function have been okay other than she occasionally does not empty her bladder completely. She has some joint pain, mainly in the hands. She tends to get numbness/tingling in her feet when she is driving longer distances. She was having significant anxiety and depression. She was started on citalopram 10 mg daily and states that this has been helping. She is also using alprazolam 0.25 mg up to 3 times a day as needed. She states that she has really felt much better since starting these medications. She states that she did have Port-A-Cath placement with Dr. Short on 08/25/2020. She states it is healing well. Mrs. Cam is here today for follow-up. She started her first dose of Tecentriq on 09/08/2020. She tolerated it well. She is here today for day 8 followup. She has no new concerns. She states she still has no appetite but is eating small meals frequently throughout the day. She denies any nausea or vomiting. She denies any fever or chills. She did have her first Covid vaccine on 09/09/2020 and is due for her second on October 09. She tolerated extremely well she states she had no side effects. She denies any new shortness of breath orthopnea. She denies any cough. She has had no hemoptysis. She denies any diarrhea or constipation. Her energy is normal for her. She denies any pain. Her ECOG is 1. Past Medical History: Anxiety/depression Chronic obstructive pulmonary disease Degenerative arthritis Gastroesophageal reflux disease Right carpal tunnel syndrome Past Surgical History: Bilateral cataract excisions Bladder sling Tubal ligation Covid 19 vaccine in 2020 Colonoscopy in 2019 Hysterectomy/bilateral salpingo-oophorectomy in 1990 Allergies: No Known Allergies. Medications: Albuterol Sulfate 2 Puff(s) (of 108 (90 base) mcg/act) Aerosol Powder, Breath Activated Inhalation q 6 hours PRN Amitriptyline HCl 1 (25 mg) Tablet Oral ac pm Centrum 1 Tablet, chewable Oral daily Famotidine 1 (40 mg) Tablet Oral daily Meclizine HCl 1 (25 mg) Tablet Oral q 6 to 8 hours PRN Omeprazole 1 (20 mg) Tablet, enteric coated Oral daily Stiolto Respimat (2.5-2.5 mcg/act) Aerosol, solution Inhalation daily Vitamin E 1 (1000 Units) Tablet, chewable Oral daily Family History: Ms. Cam's mother at age 67: stroke. Ms. Cam's father at age 62: lung cancer. Ms. Cam has 1 sister who is : lung cancer. Father of lung cancer at age 63. Mother of stroke at age 68. A sister of lung cancer at age 42. A son at age 33, apparently with multiorgan failure, specific underlying cause not determined. Social History: Ms. Cam is . She is a daily smoker who has smoked 1.0 pack/day for 55 years. She has no history of drinking. She has indicated exposure to the following products: cigarettes. She has history of smoking 1 pack of cigarettes daily. She had cut down to 1/2 pack/day, but she recently increased again. She had previously drank alcohol on weekends, but she quit that at least 10 to 15 years ago. Review Of Symptoms: Constitutional Denies fevers, chills, night sweats, excessive fatigue or weight loss. Allergic/Immunologic No reactions. Eyes Denies significant visual changes. No diplopia. No amaurosis. ENMT Denies changes in hearing, sore throat, mouth sores, difficulty or changes in swallowing ability, and/or sinus drainage. Some dry mouth but not new and no worse. Hematologic/Lymphatic Denies easy bruising or bleeding. The patient denies any tender or palpable lymph nodes. Respiratory Denies dyspnea on exertion, chest pain, cough or hemoptysis. Denies orthopnea. Cardiovascular Denies anginal chest pain, palpitations or orthopnea. Gastrointestinal Denies nausea, vomiting, diarrhea, GI bleeding, or constipation. Denies change in bowel habits and/or stool color, no heartburn or early satiety. Genitourinary (F) No hematuria, hesitancy, incontinence, vaginal bleeding, discharge or other problems with urination. Musculoskeletal Denies joint pain, swelling or redness. No decreased range of motion. Integumentary Denies chronic rashes, inflammation, ulcerations or skin changes. Neurologic Denies headache, blurred vision, and no areas of focal weakness or numbness. Normal gait. No sensory problems. Psychiatric Denies insomnia, depression, siddharth or mood swings. Vital Signs: Performed on Sep 18, 2020 10:15 Height - 61.00 in Weight - 93.2 lbs (HIGH) BSA - 1.37 sq.m BMI - 17.61 (LOW) Temperature - 98.2 F (LOW) Pulse - 93 /min Respiration - 20 /min BP - 127/76 mm(hg) O2 Sat - 92 % (LOW) Pain - 0 Fatigue - 6,1 - No physically strenuous activity, but ambulatory and able to carry out light or sedentary work (e.g. office work, light house work). (ECOG) Physical Examination: Constitutional Alert, oriented, no acute distress. Skin pink, warm and dry. Head Normocephalic; atraumatic. Eyes Conjunctivae and sclerae are clear and without icterus. Pupils are reactive and equal. Neck Supple without masses or thyromegaly. No jugular venous distension. Hematologic/Lymphatic No petechiae or purpura. No tender or palpable lymph nodes in the cervical or supraclavicular areas. Respiratory Lungs are clear to auscultation without rhonchi or wheezing. Cardiovascular Regular rate and rhythm of heart without murmurs,clicks, gallops or rubs. Back/Spine Non-tender to palpation. Extremities No visible deformities, no cyanosis, clubbing or edema. Musculoskeletal No tenderness or swelling, normal range of motion without obvious weakness. Integumentary No rashes or lesions. Neurologic No sensory or motor deficits, normal cerebellar function, normal gait. Psychiatric Alert and oriented times three. Coherent speech. Verbalizes understanding of our discussions today. Laboratory:Test performed on Sep 18, 2020 08:30 Sodium 134 mmol/L TSH 4.58 uIU/mL Potassium 3.8 mmol/L Chloride 97 mmol/L CO2 29 mmol/L Anion Gap 11.8 BUN 6 mg/dL Creatinine 0.5 mg/dL Cr Clearance (Est) 66.5900 mL/min Glucose 95 mg/dL Osmolality - Calculated 275 mOsm/kg Calcium 9.2 mg/dL Protein, Total 6.8 g/dL Albumin 4.3 g/dL Globulin 2.5 g/dL Bilirubin, Total 0.4 mg/dL ALT (SGPT) 11 U/L AST (SGOT) 19 U/L Alkaline Phosphatase 79 IU/L WBC 6.1 10 3/uL RBC 4.01 10 6/uL HGB 12.9 g/dL HCT 39.7 % MCV 99.0 fL MCH 32.2 pg MCHC 32.5 g/dL RDW 13.2 % Platelet Count 202 10 3/cmm MPV 10.0 fL Neutrophils 4.06 10 3/uL Lymphocytes 1.4 10 3/uL Monocytes 0.6 10 3/uL Eosinophils 0.1 10 3/uL Basophils 0.0 10 3/uL Neutrophil % 66.7 % Lymphocyte % 22.2 % Monocyte % 9.2 % Eosinophil % 1.1 % Basophils % 0.5 % NRBC % 0 % Impression: 1. Metastatic hepatocellular carcinoma with biopsy-proven involvement in the right anterior abdominal wall. There is also suspected recurrence in the liver by MRI. 2. She had undergone intraoperative ablation of the primary hepatocellular carcinoma in July 2019. 3. 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 She completed radiation in December 2018. 4. COPD. 5. GERD. 6. Degenerative arthritis. 7. Anxiety/depression. Plan: PROBLEMS ADDRESSED TODAY 1. Metastatic hepatocellular carcinoma with biopsy-proven involvement in the right anterior abdominal wall. There is also suspected recurrence in the liver by MRI. She has been recommended to begin a trial of palliative systemic therapy with atezolizumab in combination with bevacizumab. She had placement of aright subclavian Power Port-A-Cath for venous access by Dr Short on 08/25/2020. A. Proceed with cycle 1 of atezolizumab- this is day 8. Her treatment is every 21 days. Bevacizumab will be added with cycle 2. B. Standard antiemetics at home for nausea as needed. C. Labs from today reviewed in detail discussed with Mrs. Cam and a copy was given to her. WBC 6.1, hemoglobin 12.9, platelets 202,000 ANC is 4060. Potassium 3.8 random glucose 95 creatinine 0.5 LFTs are normal baseline TSH is 4.58. Normal range is 0.27-4.20. We will monitor her TSH for now. Her weight is up today at 93.2. D. I did offer her nutritional supplement with Ensure but she states she cannot tolerate the dairy in it and is doing okay eating frequently throughout the day. She is not restricting her diet. 2. She has significant anxiety/depression. A. Currently controlled with citalopram 10 mg daily and alprazolam 0.25 mg 3 times daily. B. She denies any intent to harm herself or others. She states is doing much better and feels really good. 3. Follow-up plan A. We will plan to see her back in 2 weeks with CBC CMP, TSH and baseline UA for Avastin monitoring. B. Mrs. Cam has been encouraged to contact us in the interim should questions or problems arise. Signed By: Khushboo Monsivais-, CNP Pierre Kumari MD <<Signature on File>>
== END 2020-09-18 05:54 | disposition home or self-care (01) ==
LOC: ONCMED 05:56
PROVIDERS: PCP Physician Assistant Medical; Visit Provider Nurse Practitioner
DX: C22.0 Liver cell carcinoma (principal); C79.89 Secondary malignant neoplasm of other specified sites; F41.8 Other specified anxiety disorders; Z92.3 Personal history of irradiation; Z92.21 Personal history of antineoplastic chemotherapy; Z79.899 Other long term (current) drug therapy; Z85.21 Personal history of malignant neoplasm of larynx
CPT/HCPCS: 36591; 80053; 84443; 85025; 99214

== ENCOUNTER 2020-10-01 06:05 | Outpatient (CLI) | payer MEDICARE, MEDICAID, SELFPAY ==
[2020-10-01 11:57] LABS: Add Urine Microscopic? NO
[2020-10-01 12:06] LABS: Basophils % 0.6 %; Eosinophils % 0.4 %; Hematocrit 39.8 % (37.0-47.0); Hemoglobin 13.2 g/dL (11.5-15.3); Lymphocytes # 2.2 10^3/uL (0.8-4.8); Lymphocytes % 30.5 %; Mean Corpuscular HGB Conc 33.2 g/dL (30.0-36.0); Mean Corpuscular Volume 96.6 fL (81-99); Mean Platelet Volume 10.1 fL (7.4-10.4); Monocytes # 0.6 10^3/uL (0.2-0.9); Monocytes % 8.6 %; Neutrophils # 4.21 10^3/uL (1.8-7.7); Neutrophils % 59.3 %; Nucleated Red Blood Cells % 0 %; Platelet Count 213 10^3/cmm (130-400); Red Blood Count 4.12 10^6/uL (4.1-5.3); Red Cell Distribution Width 13.4 % (12.1-15.1); White Blood Count 7.1 10^3/uL (4.0-10.0)
[2020-10-01 12:10] LABS: Bilirubin Urine Neg (Negative); Blood Urine Neg (Negative); Glucose Urine UA Norm (Normal); Ketones Urine Negative (Negative); Leukocyte Esterase Urine Negative (Negative); Nitrate Urine Negative (Negative); Protein Urine Neg (Negative); Urine Appearance Clear (CLEAR); Urine Color Straw (Yellow); Urobilinogen Urine Norm (Negative); pH Urine 5 (5-7)
[2020-10-01 12:38] LABS: Alanine Aminotransferase 11 U/L (0-33); Albumin Level 4.5 g/dL (3.5-5.2); Alkaline Phosphatase 73 IU/L (35-105); Anion Gap 14.1 (5-19); Aspartate Amino Transferase 17 U/L (0-32); Blood Urea Nitrogen 10 mg/dL (8-23); Calcium 9.7 mg/dL (8.5-10.5); Carbon Dioxide 27 mmol/L (22-29); Chloride 99 mmol/L (98-107); Globulin 2.8 g/dL (1.3-4.6); Glucose 96 mg/dL (65-115); Osmolality Calculated 281 mOsm/kg (285-295); Potassium 4.1 mmol/L (3.5-5.1); Sodium 136 mmol/L (136-145); Thyroid Stimulating Hormone 3.67 uIU/mL (0.27-4.20); Total Bilirubin 0.3 mg/dL (0.15-1.2); Total Protein 7.3 g/dL (6.6-8.7)
[2020-10-01] MEDS: sodium chloride 0.9% 250 ML 75 ML IV (14:50)
--- NOTE | 2020-10-12 17:33 | ONC FU_ITS ---
[facility] Patient Note Patient: Donita Cam Unit #: [id number]: 1945 Dictated By: Khushboo MonsivaisDate of Visit: Oct 01, 2020 Onc MED Follow-Up/Prog Note Chief Complaint: Hepatocellular cancer. History of Present Illness: Ms Cam is a 75-year-old woman who was recently confirmed to have metastatic hepatocellular carcinoma by biopsy of an abdominal wall nodule. 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 She was then found on surveillance CT scan in June 2019 to have a 1.7 cm segment 8 liver lesion. Biopsy of the liver on 07/17/2019 showed moderately differentiated hepatocellular carcinoma. She underwent intraoperative ablation of the liver lesion on 08/06/2019. Her surveillance CT scans of the neck and chest on 08/04/2020 showed no evidence of disease. MRI of the abdomen on 08/05/2020 showed increase in a segment 2 liver lesion and a new segment 7 lesion, suspicious for disease progression. Also noted was increasing size of a right abdominal wall lesion. Biopsy of the abdominal wall soft tissue on 08/12/2020 was positive for metastatic hepatocellular carcinoma. She had a follow-up visit with her medical oncologist at [facility], Dr. Mckenna Cruz, on 08/18/2020. She was recommended to begin palliative treatment with atezolizumab in combination with bevacizumab. She was seen by Dr Kumari on August 20, 2020 because she would like to receive her treatment closer to home. She did have Port-A-Cath placement with Dr. Short on 08/25/2020. She did have her first Covid vaccine on 09/09/2020 and is due for her second on October 09. Mrs. Cam is here today for follow-up. She started her first dose of Tecentriq on 09/08/2020. She tolerated it well. She is here today for her second cycle. She is doing well overall. She has no new concerns. She denies any fever or chills. She states she has not had any nausea or vomiting. She denies any diarrhea or constipation. She denies any new shortness of breath, cough hemoptysis or orthopnea. She denies any chest pain or palpitations. Her ECOG is 1 . Past Medical History: Anxiety/depression Chronic obstructive pulmonary disease Degenerative arthritis Gastroesophageal reflux disease Right carpal tunnel syndrome Past Surgical History: Bilateral cataract excisions Bladder sling Tubal ligation Covid 19 vaccine in 2020 Flu vac in 2019 Colonoscopy in 2019 Hysterectomy/bilateral salpingo-oophorectomy in 1990 Allergies: No Known Allergies. Medications: Albuterol Sulfate 2 Puff(s) (of 108 (90 base) mcg/act) Aerosol Powder, Breath Activated Inhalation q 6 hours PRN Amitriptyline HCl 1 (25 mg) Tablet Oral ac pm Centrum 1 Tablet, chewable Oral daily Famotidine 1 (40 mg) Tablet Oral daily Meclizine HCl 1 (25 mg) Tablet Oral q 6 to 8 hours PRN Omeprazole 1 (20 mg) Tablet, enteric coated Oral daily Stiolto Respimat (2.5-2.5 mcg/act) Aerosol, solution Inhalation daily Vitamin E 1 (1000 Units) Tablet, chewable Oral daily Family History: Ms. Cam's mother at age 67: stroke. Ms. Cam's father at age 62: lung cancer. Ms. Cam has 1 sister who is : lung cancer. Father of lung cancer at age 63. Mother of stroke at age 68. A sister of lung cancer at age 42. A son at age 33, apparently with multiorgan failure, specific underlying cause not determined. Social History: Ms. Cam is . She is a daily smoker who has smoked 1.0 pack/day for 55 years. She has no history of drinking. She has indicated exposure to the following products: cigarettes. She has history of smoking 1 pack of cigarettes daily. She had cut down to 1/2 pack/day, but she recently increased again. She had previously drank alcohol on weekends, but she quit that at least 10 to 15 years ago. Review Of Symptoms: Constitutional Denies fevers, chills, night sweats, excessive fatigue or weight loss. Allergic/Immunologic No reactions. Eyes Denies significant visual changes. No diplopia. No amaurosis. ENMT Denies changes in hearing, sore throat, mouth sores, difficulty or changes in swallowing ability, and/or sinus drainage. Some dry mouth but not new and no worse. Hematologic/Lymphatic Denies easy bruising or bleeding. The patient denies any tender or palpable lymph nodes. Respiratory Denies dyspnea on exertion, chest pain, cough or hemoptysis. Denies orthopnea. Cardiovascular Denies anginal chest pain, palpitations or orthopnea. Gastrointestinal Denies nausea, vomiting, diarrhea, GI bleeding, or constipation. Denies change in bowel habits and/or stool color, no heartburn or early satiety. Genitourinary (F) No hematuria, hesitancy, incontinence, vaginal bleeding, discharge or other problems with urination. Musculoskeletal Denies joint pain, swelling or redness. No decreased range of motion. Integumentary Denies chronic rashes, inflammation, ulcerations or skin changes. Neurologic Denies headache, blurred vision, and no areas of focal weakness or numbness. Normal gait. No sensory problems. Psychiatric Denies insomnia, depression, siddharth or mood swings. Vital Signs: Performed on Oct 01, 2020 13:50 Height - 61.00 in Weight - 89.8 lbs (LOW) BSA - 1.34 sq.m BMI - 16.97 (LOW) Temperature - 97.6 F (LOW) Pulse - 88 /min Respiration - 18 /min BP - 153/83 mm(hg) (HIGH) O2 Sat - 96 % Pain - 2,1 - No physically strenuous activity, but ambulatory and able to carry out light or sedentary work (e.g. office work, light house work). (ECOG) Physical Examination: Constitutional Alert, oriented, no acute distress. Skin pink, warm and dry. Head Normocephalic; atraumatic. Eyes Conjunctivae and sclerae are clear and without icterus. Pupils are reactive and equal. Neck Supple without masses or thyromegaly. No jugular venous distension. Hematologic/Lymphatic No petechiae or purpura. No tender or palpable lymph nodes in the cervical or supraclavicular areas. Respiratory Lungs are clear to auscultation without rhonchi or wheezing. Cardiovascular Regular rate and rhythm of heart without murmurs,clicks, gallops or rubs. Abdomen Non-tender, non-distended, no masses or ascites. Good bowel sounds noted in all quads. No guarding or rebound tenderness. No pulsatile masses. Back/Spine Non-tender to palpation. Extremities No visible deformities, no cyanosis, clubbing or edema. Musculoskeletal No tenderness or swelling, normal range of motion without obvious weakness. Integumentary No rashes or lesions. Neurologic No sensory or motor deficits, normal cerebellar function, normal gait. Psychiatric Alert and oriented times three. Coherent speech. Verbalizes understanding of our discussions today. Laboratory:Test performed on Oct 01, 2020 11:45 Sodium 136 mmol/L TSH 3.67 uIU/mL Potassium 4.1 mmol/L Chloride 99 mmol/L CO2 27 mmol/L Anion Gap 14.1 BUN 10 mg/dL Creatinine 0.4 mg/dL Cr Clearance (Est) 83.2300 mL/min Glucose 96 mg/dL Osmolality - Calculated 281 mOsm/kg Calcium 9.7 mg/dL Protein, Total 7.3 g/dL Albumin 4.5 g/dL Globulin 2.8 g/dL Bilirubin, Total 0.3 mg/dL ALT (SGPT) 11 U/L AST (SGOT) 17 U/L Alkaline Phosphatase 73 IU/L WBC 7.1 10 3/uL RBC 4.12 10 6/uL HGB 13.2 g/dL HCT 39.8 % MCV 96.6 fL MCH 32.0 pg MCHC 33.2 g/dL RDW 13.4 % Platelet Count 213 10 3/cmm MPV 10.1 fL Neutrophils 4.21 10 3/uL Lymphocytes 2.2 10 3/uL Monocytes 0.6 10 3/uL Eosinophils 0.0 10 3/uL Basophils 0.0 10 3/uL Neutrophil % 59.3 % Lymphocyte % 30.5 % Monocyte % 8.6 % Eosinophil % 0.4 % Basophils % 0.6 % NRBC % 0 % Test performed on Oct 01, 2020 11:40 Ua Color Straw Ua Appearance Clear Ua Glucose Norm Ua Bilirubin Neg Ua Ketones Negative Ua Specific [place] 1.010 Ua Blood Neg Ua pH 5 Ua Protein Neg Ua Nitrites Negative Ua Leukocyte Esterase Negative Impression: 1. Metastatic hepatocellular carcinoma with biopsy-proven involvement in the right anterior abdominal wall. There is also suspected recurrence in the liver by MRI. 2. She had undergone intraoperative ablation of the primary hepatocellular carcinoma in July 2019. 3. 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 She completed radiation in December 2018. 4. COPD. 5. GERD. 6. Degenerative arthritis. 7. Anxiety/depression. Plan: PROBLEMS ADDRESSED TODAY 1. Metastatic hepatocellular carcinoma with biopsy-proven involvement in the right anterior abdominal wall. There is also suspected recurrence in the liver by MRI. She has been recommended to begin a trial of palliative systemic therapy with atezolizumab in combination with bevacizumab. She had placement of aright subclavian Power Port-A-Cath for venous access by Dr Short on 08/25/2020. A. Proceed with cycle 2 of atezolizumab and proceed with cycle 1 Avastin C. Labs from today reviewed in detail discussed with Mrs. Cam and a copy was given to her. WBC 7.1, hemoglobin 13.2, platelets 213,000 ANC is 4210 potassium 4.1 creatinine 0.4 LFTs are normal. TSH normal 3.67. UA is negative for protein. D. I did offer her nutritional supplement with Ensure but she states she cannot tolerate the dairy in it and is doing okay eating frequently throughout the day. She is not restricting her diet. 2. She has significant anxiety/depression. A. Currently controlled with citalopram 10 mg daily and alprazolam 0.25 mg 3 times daily. B. She denies any intent to harm herself or others. She states is doing much better and feels really good. 3. Follow-up plan A. We will plan to see her back in 3 weeks with CBC CMP, TSH and UA for Avastin monitoring. B. Mrs. Cam has been encouraged to contact us in the interim should questions or problems arise. Signed By: Kuhshboo Monsivais-, AOCNP Pierre Kumari MD <<Signature on File>>
== END 2020-10-01 06:06 | disposition home or self-care (01) ==
LOC: ONCMED 06:07
PROVIDERS: PCP Physician Assistant Medical; Visit Provider Nurse Practitioner
DX: Z51.12 Encounter for antineoplastic immunotherapy (principal); Z51.11 Encounter for antineoplastic chemotherapy; C22.0 Liver cell carcinoma; C79.89 Secondary malignant neoplasm of other specified sites; F41.9 Anxiety disorder, unspecified; F32.9 Major depressive disorder, single episode, unspecified; J44.9 Chronic obstructive pulmonary disease, unspecified; K21.9 Gastro-esophageal reflux disease without esophagitis; G56.01 Carpal tunnel syndrome, right upper limb; Z79.899 Other long term (current) drug therapy; Z85.21 Personal history of malignant neoplasm of larynx; Z92.3 Personal history of irradiation
CPT/HCPCS: 80053; 81003; 84443; 85025; 96413; 96417; 99214; J7050; J9022; J9035

== ENCOUNTER 2020-10-23 08:49 | Outpatient (CLI) | payer MEDICARE, MEDICAID, SELFPAY ==
[2020-10-23 09:45] LABS: Add Urine Microscopic? NO; Charge for UA Resulting for Rev
[2020-10-23 09:55] LABS: Basophils % 0.4 %; Eosinophils % 0.6 %; Hematocrit 42.2 % (37.0-47.0); Hemoglobin 13.7 g/dL (11.5-15.3); Lymphocytes # 1.7 10^3/uL (0.8-4.8); Lymphocytes % 23.1 %; Mean Corpuscular HGB Conc 32.5 g/dL (30.0-36.0); Mean Corpuscular Hemoglobin 31.9 pg (28.0-34.0); Mean Corpuscular Volume 98.1 fL (81-99); Monocytes # 0.6 10^3/uL (0.2-0.9); Monocytes % 8.6 %; Neutrophils # 4.81 10^3/uL (1.8-7.7); Nucleated Red Blood Cells % 0 %; Platelet Count 215 10^3/cmm (130-400); Red Cell Distribution Width 13.6 % (12.1-15.1); White Blood Count 7.2 10^3/uL (4.0-10.0)
[2020-10-23 10:00] LABS: Bilirubin Urine Neg (Negative); Blood Urine Neg (Negative); Glucose Urine UA Norm (Normal); Ketones Urine Negative (Negative); Leukocyte Esterase Urine Negative (Negative); Nitrate Urine Negative (Negative); Protein Urine Neg (Negative); Urine Appearance Clear (CLEAR); Urine Color Straw (Yellow); Urobilinogen Urine Norm (Negative); pH Urine 5 (5-7)
[2020-10-23 10:26] LABS: Alanine Aminotransferase 12 U/L (0-33); Albumin Level 4.4 g/dL (3.5-5.2); Alkaline Phosphatase 71 IU/L (35-105); Anion Gap 13.2 (5-19); Aspartate Amino Transferase 19 U/L (0-32); Blood Urea Nitrogen 10 mg/dL (8-23); Calcium 9.4 mg/dL (8.5-10.5); Carbon Dioxide 27 mmol/L (22-29); Chloride 103 mmol/L (98-107); Globulin 2.4 g/dL (1.3-4.6); Glucose 106 mg/dL (65-115); Osmolality Calculated 287 mOsm/kg (285-295); Potassium 4.2 mmol/L (3.5-5.1); Sodium 139 mmol/L (136-145); Thyroid Stimulating Hormone 5.12 uIU/mL (0.27-4.20); Total Bilirubin 0.4 mg/dL (0.15-1.2); Total Protein 6.8 g/dL (6.6-8.7)
[2020-10-23] MEDS: sodium chloride 0.9% 250 ML 75 ML IV (11:30)
[2020-10-24 12:25] LABS: Free T4 Free Thyroxine 1.34 ng/dL (0.82-1.77)
--- NOTE | 2020-10-26 08:22 | ONC FU_ITS ---
Dr. Kumari Patient Follow-Up Note Patient: Donita Cam Unit #: [id number]: 1945 Dicatated By: Pierre Kumari M.D.Date of Visit:Oct 23, 2020 Onc Med Follow-up/Prog Note Chief Complaint: Hepatocellular cancer. History of Present Illness: This is a 75-year-old woman with metastatic hepatocellular carcinoma. 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 She was then found on surveillance CT scan in June 2019 to have a 1.7 cm segment 8 liver lesion. Biopsy of the liver on 07/17/2019 showed moderately differentiated hepatocellular carcinoma. She underwent intraoperative ablation of the liver lesion on 08/06/2019. Her surveillance CT scans of the neck and chest on 08/04/2020 showed no evidence of disease. MRI of the abdomen on 08/05/2020 showed increase in a segment 2 liver lesion and a new segment 7 lesion, suspicious for disease progression. Also noted was increasing size of a right abdominal wall lesion. Biopsy of the abdominal wall soft tissue on 08/12/2020 was positive for metastatic hepatocellular carcinoma. She had a follow-up visit with her medical oncologist at [facility], Dr. Mceknna Cruz, on 08/18/2020. She was recommended to begin palliative treatment with atezolizumab in combination with bevacizumab. She was seen here because she desired to receive her treatment closer to home. Her other medical illnesses include COPD, GERD, degenerative arthritis, and anxiety/depression. She has a history of smoking 1 pack of cigarettes daily, but she had cut down to 1/2 pack/day. INTERIM HISTORY: Following her initial visit here on 08/20/2020 she underwent placement of Port-A-Cath venous access device. She then returned to begin her 1st cycle of treatment, limited to atezolizumab monotherapy. With cycle 2 on 10/01/2020 bevacizumab was added to the regimen. She tolerated both treatments with no adverse effects. She is seen for a scheduled visit. She complains that she feels tired, but her energy is about the same. Her ECOG score is 1. She complains that she has no appetite. She does force herself to eat. She does not have fever or night sweats. She has been having some sinus drainage and cough. She has shortness of breath. Her breathing also is about the same. She does not complain of chest pain. Recently she has been having some diarrhea. She has no other GI or complaints. She has a little joint pain, mainly in her hands. She does not complain of headache or dizziness. She has no numbness/paresthesia or other focal neurologic symptoms. She does have anxiety and depression, and she says the medication is not helping. Medications: Albuterol Sulfate 2 Puff(s) (of 108 (90 base) mcg/act) Aerosol Powder, Breath Activated Inhalation q 6 hours PRN, Amitriptyline HCl 1 (25 mg) Tablet Oral ac pm, Centrum 1 Tablet, chewable Oral daily, Famotidine 1 (40 mg) Tablet Oral daily, Meclizine HCl 1 (25 mg) Tablet Oral q 6 to 8 hours PRN, Omeprazole 1 (20 mg) Tablet, enteric coated Oral daily, Stiolto Respimat (2.5-2.5 mcg/act) Aerosol, solution Inhalation daily, Vitamin E 1 (1000 Units) Tablet, chewable Oral daily Allergies: No Known Allergies. Vital Signs: Performed on Oct 23, 2020 13:00 Height - 61.00 in Temperature - 99.7 F (HIGH) Pulse - 84 /min Respiration - 20 /min BP - 130/73 mm(hg) O2 Sat - 92 % (LOW) Performed on Oct 23, 2020 10:35 Height - 61.00 in Weight - 90.8 lbs (HIGH) BSA - 1.35 sq.m BMI - 17.16 (LOW) Temperature - 98.1 F (LOW) Pulse - 89 /min Respiration - 18 /min BP - 150/70 mm(hg) (HIGH) O2 Sat - 93 % (LOW) Pain - 0 Fatigue - 5 Physical Examination: Constitutional - She looks pretty good generally, Eyes - Sclerae nonicteric. Conjunctivae clear, ENMT - No lesions noted in the oral cavity, Hematologic/Lymphatic - No cervical, clavicular, or axillary adenopathy, Respiratory - Lungs are clear with diminished air movement bilaterally, Cardiovascular - Heart rhythm is regular. There is no murmur, gallop, or rub noted, Abdomen - Soft. The subcutaneous nodule in the medial aspect of the right upper quadrant measures approximately 3 x 4 cm. Liver and spleen are not enlarged. There is no abdominal mass or ascites noted and there is no inguinal adenopathy, Extremities - No edema, Integumentary - No skin eruption, Neurologic - No focal neurologic deficits noted. Lab/Imaging: Test performed on Oct 23, 2020 09:10 Sodium 139 mmol/L T4, Free 1.34 ng/dL TSH 5.12 uIU/mL Potassium 4.2 mmol/L Chloride 103 mmol/L CO2 27 mmol/L Anion Gap 13.2 BUN 10 mg/dL Creatinine 0.4 mg/dL Cr Clearance (Est) 83.2300 mL/min Glucose 106 mg/dL Osmolality - Calculated 287 mOsm/kg Calcium 9.4 mg/dL Protein, Total 6.8 g/dL Albumin 4.4 g/dL Globulin 2.4 g/dL Bilirubin, Total 0.4 mg/dL ALT (SGPT) 12 U/L AST (SGOT) 19 U/L Alkaline Phosphatase 71 IU/L Ua Color Straw WBC 7.2 10 3/uL Ua Appearance Clear RBC 4.30 10 6/uL Ua Glucose Norm HGB 13.7 g/dL Ua Bilirubin Neg HCT 42.2 % Ua Ketones Negative MCV 98.1 fL Ua Specific [place] 1.010 MCH 31.9 pg Ua Blood Neg MCHC 32.5 g/dL Ua pH 5 RDW 13.6 % Ua Protein Neg Platelet Count 215 10 3/cmm MPV 10.0 fL Neutrophils 4.81 10 3/uL Ua Nitrites Negative Lymphocytes 1.7 10 3/uL Ua Leukocyte Esterase Negative Monocytes 0.6 10 3/uL Eosinophils 0.0 10 3/uL Basophils 0.0 10 3/uL Neutrophil % 67.0 % Lymphocyte % 23.1 % Monocyte % 8.6 % Eosinophil % 0.6 % Basophils % 0.4 % NRBC % 0 % Problem List: 1. Metastatic hepatocellular carcinoma with biopsy-proven involvement in the right anterior abdominal wall. There is also suspected recurrence in the liver by MRI. 2. She had undergone intraoperative ablation of the primary hepatocellular carcinoma in July 2019. 3. 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 She completed radiation in December 2018. 4. COPD. 5. GERD. 6. Degenerative arthritis. 7. Anxiety/depression. Problems Addressed with this Encounter and Plan: 1. Patient with metastatic hepatocellular carcinoma with biopsy-proven involvement in the right anterior abdominal wall. There is also suspected recurrence in the liver by MRI. She has been recommended to begin a trial of palliative systemic therapy with atezolizumab in combination with bevacizumab. She began cycle 1 of atezolizumab on 09/08/2020. She tolerated it well and continued with cycle 2 on 10/01/2020. At that point bevacizumab was added to the regimen. She has continued to tolerate the treatment well. It does appear, though, that her abdominal wall mass may be getting larger. At least for now she will continue with her 3rd cycle of treatment. Dosages will remain the same. She returns for treatment in 3 weeks and for a follow-up visit in 6 weeks. She will be scheduled for restaging CT scans prior to that visit. 2. She complains that she has no appetite and she is forcing herself to eat. She will be given a prescription for dronabinol 2.5 mg twice daily. 3. She has mildly elevated TSH level. This may be treatment related. She is not overtly symptomatic, with free her T4 level in normal range, I will continue to just monitor it closely. 4. She has significant anxiety/depression. She had started citalopram 10 mg daily, but thus far she has had no benefit. She will now increase the dosage to 20 mg. She continues alprazolam as needed. Signed By: Pierre Kumari M.D. <<Signature on File>>
== END 2020-10-23 08:50 | disposition home or self-care (01) ==
PROVIDERS: PCP Physician Assistant Medical; Visit Provider Internal Medicine Medical Oncology
DX: Z51.12 Encounter for antineoplastic immunotherapy (principal); C22.0 Liver cell carcinoma; C79.89 Secondary malignant neoplasm of other specified sites; C32.1 Malignant neoplasm of supraglottis; E03.9 Hypothyroidism, unspecified; R94.6 Abnormal results of thyroid function studies; R63.0 Anorexia; F41.8 Other specified anxiety disorders; F17.210 Nicotine dependence, cigarettes, uncomplicated; Z51.81 Encounter for therapeutic drug level monitoring; Z79.899 Other long term (current) drug therapy; Z92.3 Personal history of irradiation
CPT/HCPCS: 80053; 81003; 84439; 84443; 85025; 96413; 96417; 99215; J7050; J9022; J9035

== ENCOUNTER 2022-08-08 21:13 | Inpatient (IN) | payer MEDICARE, MEDICAID, SELFPAY ==
[2022-08-08 21:20] VITALS: BMI 15.0
[2022-08-08 21:25] VITALS: BP 156/81; PULSE 76; RESP 16; TEMP 36.9; O2SAT 97
--- NOTE | 2022-08-08 21:54 | CTR_ITS ---
PROCEDURE INFORMATION: Exam: CT Pelvis Without Contrast; Skeletal Exam date and time: 08/08/2022 10:45 PM Age: 77 years old Clinical indication: Injury or trauma; Fall; Blunt trauma (contusions or hematomas); Bilateral; Hip and pelvic region; Additional info: Fall right hip inj TECHNIQUE: Imaging protocol: Computed tomography of the pelvis without contrast. Exam focused on the skeleton. Sagittal and coronal reformatted images were created and reviewed. Radiation optimization: All CT scans at this facility use at least one of these dose optimization techniques: automated exposure control; mA and/or kV adjustment per patient size (includes targeted exams where dose is matched to clinical indication); or iterative reconstruction. COMPARISON: No relevant prior studies available. RADIATION DOSE METRICS: Total DLP (mGy-cm): 246.16 FINDINGS: Liver: Nodular contour of the visualized liver. Partially visualized lesion in the right lobe of the liver measuring at least 1.7 x 2.3 cm (series 5, image 1). Kidneys and ureters: The visualized right and left kidneys are unremarkable. Stomach and bowel: The visualized small bowel is unremarkable. Scattered diverticula in the sigmoid colon. No evidence for diverticulitis. Urinary bladder: Diffuse, moderate wall thickening of the bladder. Reproductive: Patient has had a previous hysterectomy. The ovaries are not definitely visualized, not an expected in a postmenopausal female. This may be due to ovarian atrophy. Alternatively, the patient may have had a previous bilateral oophorectomy. Intraperitoneal space: Large volume ascites. Lymph nodes: No lymphadenopathy. Bones/joints: Bones are diffusely osteopenic. Multilevel degenerative changes of varying severity in the visualized spine. Mild degenerative changes of the right and left sacroiliac joints. Mildly comminuted and minimally displaced intertrochanteric fracture of the right femur. Bones are diffusely osteopenic. No dislocation. Lytic lesion in the S1 segment of the sacrum in the midline concerning for a metastatic focus. Soft tissues: Extensive body wall edema. CT/CT pelvis wo con [id number] IMPRESSION: 1. Mildly comminuted and minimally displaced intertrochanteric fracture of the right femur. 2. Lytic lesion in the S1 segment of the sacrum in the midline concerning for a metastatic focus. 3. Findings suspicious for cirrhosis in the visualized liver. Large volume ascites suspicious for portal hypertension. 4. Partially visualized lesion in the right lobe of the liver concerning for a primary hepatocellular carcinoma or metastatic lesion. 5. Diffuse, moderate wall thickening of the bladder. In the correct clinical setting, this may suggest cystitis. Recommend correlation with laboratory findings. Alternatively, this may be secondary to chronic outlet obstruction. 6. Scattered diverticula in the sigmoid colon. No evidence for diverticulitis. 7. Extensive body wall edema. 8. Incidental/nonacute findings are listed in the report.
--- NOTE | 2022-08-08 21:54 | CTR_ITS ---
PROCEDURE INFORMATION: Exam: CT Cervical Spine Without Contrast Exam date and time: 08/08/2022 10:39 PM Age: 77 years old Clinical indication: Injury or trauma; Fall; Blunt trauma; Additional info: Fall neck injury TECHNIQUE: Imaging protocol: Computed tomography of the cervical spine without contrast. Sagittal and coronal reformatted images were created and reviewed. Radiation optimization: All CT scans at this facility use at least one of these dose optimization techniques: automated exposure control; mA and/or kV adjustment per patient size (includes targeted exams where dose is matched to clinical indication); or iterative reconstruction. COMPARISON: CT cervical spin wo con* [id number] 10/04/2018 2:26 PM RADIATION DOSE METRICS: Total DLP (mGy-cm): 163.17 FINDINGS: Bones/joints: Vertebral body height is maintained. No subluxation. Bones are diffusely osteopenic. Multilevel degenerative changes of varying severity in the visualized spine. Moderate spinal canal stenosis at C3-C4, C4-C5, C5-C6, and C6-C7. Multilevel foraminal stenosis of varying severity in the visualized spine. Mild dextroscoliosis in the visualized spine. Lytic lesion with focal cortical destruction in the posterior C2 vertebral body (series 3, image 36). No acute fracture. Paranasal sinuses: Visualized paranasal sinuses are clear. Mastoid air cells: Small amount of fluid in the right mastoid air cells. Auditory system: Large amount of fluid in the left mastoid air cells and fluid in the left middle ear cavity suspicious for otomastoiditis. Lungs: Marked paraseptal and centrilobular emphysematous changes in the visualized lungs. Lymph nodes: No lymphadenopathy. Vasculature: Atherosclerotic changes in the visualized arteries. Soft tissues: Extensive body wall edema. CT/CT cervical spin wo con* [id number] IMPRESSION: 1. Lytic lesion with focal cortical destruction in the posterior C2 vertebral body concerning for a metastatic focus. 2. No acute fracture of the cervical spine. CT scan would be recommended if there is continuing clinical concern for fracture. 3. Multilevel degenerative changes of varying severity in the visualized spine. Moderate spinal canal stenosis at C3-C4, C4-C5, C5-C6, and C6-C7. Multilevel foraminal stenosis of varying severity in the visualized spine. 4. Large amount of fluid in the left mastoid air cells and fluid in the left middle ear cavity suspicious for otomastoiditis. 5. Extensive body wall edema. 6. Incidental/nonacute findings are listed in the report.
--- NOTE | 2022-08-08 21:54 | XRR_ITS ---
PROCEDURE INFORMATION: Exam: XR Chest Exam date and time: 08/08/2022 10:07 PM Age: 77 years old Clinical indication: Injury or trauma; Fall; Blunt trauma (contusions or hematomas); Additional info: Dizzy and fall TECHNIQUE: Imaging protocol: Radiologic exam of the chest. Views: 1 view. COMPARISON: CR XR chest 1V portable [id number] 08/25/2020 1:06 PM FINDINGS: Tubes, catheters and devices: Stable right subclavian Port-A-Cath with the tip in the superior vena cava. Lungs: Stable mild hyperinflation of the lungs. Stable emphysematous changes in the lungs. There is linear scarring in the left mid lung. Pleural spaces: No pleural effusion. No pneumothorax. Heart/Mediastinum: Stable moderate enlargement of the cardiac silhouette. Mediastinal contours are unremarkable. Bones/joints: Bones are diffusely osteopenic. Degenerative changes in the spine and shoulders. Of right and left clavicular fractures. Osseous findings are stable. XR/XR chest 1V portable [id number] IMPRESSION: 1. No acute cardiopulmonary process. 2. Incidental/nonacute findings are listed in the report.
--- NOTE | 2022-08-08 21:54 | CTR_ITS ---
PROCEDURE INFORMATION: Exam: CT Head Without Contrast Exam date and time: 08/08/2022 10:35 PM Age: 77 years old Clinical indication: Injury or trauma; Fall; Blunt trauma (contusions or hematomas); Additional info: Fall with head injury TECHNIQUE: Imaging protocol: Computed tomography of the head without contrast. Radiation optimization: All CT scans at this facility use at least one of these dose optimization techniques: automated exposure control; mA and/or kV adjustment per patient size (includes targeted exams where dose is matched to clinical indication); or iterative reconstruction. COMPARISON: CT cervical spin wo con* [id number] 10/04/2018 2:26 PM RADIATION DOSE METRICS: Total DLP (mGy-cm): 1192.55 FINDINGS: Brain: There is diffuse cerebral atrophy and chronic microvascular white matter disease. There is no acute intracranial hemorrhage. Cerebral ventricles: There is mild ex vacuo dilation of the lateral ventricles. The basal cisterns are unremarkable. Paranasal sinuses: The paranasal sinuses are clear. Mastoid air cells: Left mastoid effusion. Bones/joints: The calvarium is intact. Soft tissues: Midline high parietal posterior scalp edema. CT/CT head wo con* [id number] IMPRESSION: 1. No acute intracranial abnormality. 2. Left mastoid effusion.
--- NOTE | 2022-08-08 22:16 | ECG_ITS ---
[facility] Test Date: 2022-08-08 Pat Name: Donita Cam Department: Room: Gender: Female Clinical Research Nurse: : 1945 Requested By: David Nuñez Order Number: [id number] Jose Alfredo MD: Miguelangel Post M.D. Measurements Intervals [place] Rate: 72 P: 82 ID: 150 QRS: 99 QRSD: 102 T: 66 QT: 420 QTc: 462 Interpretive Statements SINUS RHYTHM POSSIBLE LEFT ATRIAL ENLARGEMENT [-0.1mV P-WAVE IN V1/V2] BORDERLINE RIGHT AXIS DEVIATION [QRS AXIS > 90] No previous ECG available for comparison Electronically Signed On 08-10-2022 7:43:26 POINTING MACHINE OPERATOR by Miguelangel Post M.D. [id number]
[2022-08-08 23:38] LABS: Basophils % 0.2 %; Eosinophils % 0.1 %; Hematocrit 34.4 % (37.0-47.0); Hemoglobin 11.3 g/dL (11.5-15.3); Lymphocytes % 9.1 %; Mean Corpuscular HGB Conc 32.8 g/dL (30.0-36.0); Mean Corpuscular Hemoglobin 31.7 pg (28.0-34.0); Mean Corpuscular Volume 96.4 fl (81-99); Mean Platelet Volume 9.9 fL (7.4-10.4); Monocytes # 0.7 10^3/uL (0.2-0.9); Monocytes % 6.1 %; Neutrophils # 9.21 10^3/uL (1.8-7.7); Neutrophils % 83.9 %; Nucleated Red Blood Cells % 0 %; Platelet Count 523 10^3/cmm (130-400); Red Blood Count 3.57 10^6/uL (4.1-5.3); Red Cell Distribution Width 15.7 % (12.1-15.1)
[2022-08-09] VITALS (14 sets, daily range): BP systolic 153–166; BP diastolic 69–80; PULSE 74–84; RESP 15–29; TEMP 36.3–36.7; O2SAT 90–100
[2022-08-09 00:06] LABS: Alanine Aminotransferase 52 U/L (0-33); Albumin Level 3.8 g/dL (3.5-5.2); Alkaline Phosphatase 676 U/L (35-105); Anion Gap 11.5 (5-19); Aspartate Amino Transferase 128 U/L (0-32); Blood Urea Nitrogen 16 mg/dL (8-23); Calcium 8.8 mg/dL (8.5-10.5); Carbon Dioxide 34 mmol/L (22-29); Chloride 86 mmol/L (98-107); Creatine Phosphokinase 81 U/L (26-192); Globulin 2.9 g/dL (1.3-4.6); Glucose 93 mg/dL (65-115); Osmolality Calculated 267 mOsm/kg (285-295); Potassium 3.5 mmol/L (3.5-5.1); Sodium 128 mmol/L (136-145); Total Bilirubin 0.6 mg/dL (0.15-1.2); Total Protein 6.7 g/dL (6.6-8.7)
--- NOTE | 2022-08-09 00:34 | XRR_ITS ---
PROCEDURE INFORMATION: Exam: XR Right Femur Exam date and time: 08/09/2022 12:39 AM Age: 77 years old Clinical indication: Injury or trauma; Fall; Blunt trauma; Hip and thigh or upper leg; Right; Additional info: Fall hip pain TECHNIQUE: Imaging protocol: Radiologic exam of the Right femur. Views: 2 views. COMPARISON: CT pelvis wo con [id number] 08/08/2022 10:45 PM FINDINGS: Bones/joints: There is a nondisplaced intertrochanteric fracture of the right femur. Femoroacetabular alignment is normal. The visible portion of the pelvis is normal. The distal femur is intact. Soft tissues: Visible soft tissues are unremarkable. XR/XR femur RT min 2V* [id number] IMPRESSION: Nondisplaced intertrochanteric femoral fracture.
[2022-08-09] MEDS: HYDROmorphone 1 mg/mL INJ 1 mL IVP (00:59)
--- NOTE | 2022-08-09 01:11 | PM.HP ---
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 due to a fall. Patient tells me that she lives at home by herself, she has hospice, she has physical therapy and her family checks up on her. She tells me that this morning, her home health care nurse went out to get something from the grocery store, and she was woke ambulating in her home, when she suddenly felt dizzy, and she fell on her right side she was on the floor for roughly 5 hours before her family found her. She tells me that she felt dizzy, no chest pain, palpitations, shortness of breath she chronically has a cough, no vertigo, no diarrhea, she hydrates well, no fevers. She currently is complaining of back pain, right hip pain Review of Systems Const: Denies: fever(s) or chills Eyes: Denies: change in vision Card: Reports: lightheadedness; Denies: chest pain, palpitations or syncope Resp: Reports: non-productive cough; Denies: dyspnea GI: Denies: nausea, vomiting, hematemesis or melena : Denies: flank pain, dysuria or urinary frequency Musc: Reports: back pain Neuro: Denies: headache(s) or vertigo Endo: Denies: polyuria or polydipsia Amado/Lymph: Reports: easy bruising Medications/Allergies Home Medications Medication Instructions Recorded Confirmed Last Taken Type albuterol sulfate 90 mcg/actuation 2 puff inhalation 6XD PRN 08/22/20 09/12/20 08/24/20 History aerosol inhaler Shortness Of Breath alprazolam 0.25 mg tablet (Xanax) 0.25 mg PO DAILY PRN Anxiety 08/22/20 09/12/20 08/24/20 History citalopram 10 mg tablet 10 mg PO DAILY 08/22/20 09/12/20 08/24/20 History famotidine 20 mg disintegrating 20 mg PO BID 08/22/20 09/12/20 08/24/20 History tablet hxteskeqmxjt-qroynmyq-dcbacx tablet 1 tab PO DAILY 08/22/20 09/12/20 08/24/20 History tiotropium 2.5 mcg-olodaterol 2.5 2 puff inhalation DAILY 08/22/20 09/12/20 08/24/20 History mcg/actuation mist for inhalation (Stiolto Respimat) vitamin E 670 mg (1,000 unit) 1,000 unit PO DAILY 08/22/20 09/12/20 08/24/20 History capsule hydrocodone 5 mg-acetaminophen 325 1 tab PO Q6H PRN pain #14 tabs 08/25/20 09/12/20 Unknown Rx mg tablet ([place]) Allergies Allergy/AdvReac Type Severity Reaction Status Date / Time No Known Allergies Allergy Verified 09/12/20 17:33 PFSH Acute PFSH: Medical History (Updated 08/09/22 @ 01:19 by Steven Boone MD) Hepatocellular carcinoma History of COPD History of gastroesophageal reflux (GERD) History of throat cancer Surgical History (Updated 08/09/22 @ 01:19 by Steven Boone MD) History of hysterectomy Family History (Updated 08/09/22 @ 01:20 by Steven Boone MD) Mother Stroke Father Lung cancer Social History (Updated 08/09/22 @ 01:20 by Steven Boone MD) Smoking and tobacco status: current every day smoker Second hand smoke exposure: No Alcohol intake: never Substance/Drug Use: never Lives independently: Yes Vitals/I&O/Wt Last Vital Signs Temp 98.5 F 08/08/22 21:25 Pulse 76 08/08/22 21:25 Resp 20 H 08/09/22 00:59 BP 156/81 08/08/22 21:25 Pulse Ox 92 08/09/22 00:59 O2 Del Method 08/08/22 21:25 O2 Flow Rate 4 08/08/22 21:25 Weight last 48 hrs Weight 40.823 kg Physical Exam Const: COMMON NORMALS: no acute distress and patient oriented x3 GENERAL APPEARANCE: frail appearing NUTRITIONAL APPEARANCE: cachectic OTHER: Temporal muscle wasting, severe muscle wasting, bilateral biceps, bilateral thighs, HENMT: COMMON NORMALS: normocephalic HEAD & SCALP: normocephalic Eye: COMMON NORMALS: Equal, round and reactive pupils present and EOMs intact bilaterally Neck/C-Spine: COMMON NORMALS: no lymphadenopathy Lymph: LYMPHATIC: no lymphadenopathy noted Resp: COMMON NORMALS: normal respiratory effort, No retractions and No use of accessory muscles AUSCULTATION: crackles Cardio: COMMON NORMALS: regular rate, regular rhythm, S1 normal heart sound present and S2 normal heart sound present RATE: regular rate RHYTHM: regular rhythm HEART SOUNDS: S1 normal heart sound present and S2 normal heart sound present GI: OTHER: Abdomen distended, fluid wave present, bowel sounds present, no guarding, no rebound, no rigidity, hepatomegaly : COMMON NORMALS: Yes no CVA tenderness Back/Pelvis: OTHER: Right hip pain Extremity: COMMON NORMALS: no pedal edema Neuro: COMMON NORMALS: patient oriented x3 and CN's II-XII intact bilaterally Psych: COMMON NORMALS: mental status grossly normal Data 08/08/22 23:08 08/08/22 23:08 A&P Assessment and plan (1) Severe muscle deconditioning: (2) Cancer cachexia: (3) Protein calorie malnutrition: (4) Hospice care patient: (5) Hepatocellular carcinoma: (6) 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 -CT imaging does not suggest pathological fracture -Has 100 mcg patch on, to be replaced Tuesday evening -Dilaudid 0.5 mg IV push every 4 as needed for breakthrough pain -Zofran for nausea -SCDs for DVT prophylaxis Lovenox on hold and plans for surgery -Patient is hospice patient, confirmed with her that she is DNR/DNI Goals of care discussion, above patient does not want any pain, she is DNR/DNI she is a hospice patient for hepatocellular carcinoma Metastatic hepatocellular carcinoma -History of intraoperative ablation, history of chemotherapy -Currently on hospice C2 lytic lesion Sacral lytic lesion Evidence of liver cirrhosis, with portal hypertension, -Abdomen distended, ascites present, monitor Hyponatremia, hold Celexa IV fluids Has complaints of dizziness -Possible UTI UA pending -Possible dehydration IV fluids -Serial EKGs closer to muscular telemetry monitoring History of COPD -Currently 4 L -Active smoker -Chest x-ray no focal pneumonia -DuoNeb treatment, budesonide Attestations Medical Necessity Statement*: Patient requires hospitalization, inpatient, greater than 2 midnights, for right hip fracture Coding Level of Care Code Acute Code for Chg Fwd Diagnoses Severe muscle deconditioning R29.898 Cancer cachexia R64 Protein calorie malnutrition E46 Hospice care patient Z51.5 Hepatocellular carcinoma C22.0 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
--- NOTE | 2022-08-09 03:08 | ECG_ITS ---
[facility] Test Date: 2022-08-09 Pat Name: Donita Cam Department: Room: 252 Gender: Female Computer Programming Professor: : 1945 Requested By: Steven Boone Order Number: [id number] Jose Alfredo MD: Eboni Montiel M.D. Measurements Intervals [place] Rate: 71 P: 81 IA: 145 QRS: 102 QRSD: 105 T: 57 QT: 423 QTc: 461 Interpretive Statements SINUS RHYTHM POSSIBLE RIGHT VENTRICULAR HYPERTROPHY [SOME/ALL OF: PROMINENT R IN V1, LATE TRANSITION, RAD, [place], SSS] MODERATE T-WAVE ABNORMALITY, CONSIDER ANTEROLATERAL ISCHEMIA [-0.1+ mV T-WAVE IN V3-V6] Compared to ECG 08/08/2022 22:16:33 T-wave abnormality now present Possible ischemia now present Electronically Signed On 08-10-2022 7:49:42 POLICE OFFICER by Eboni Montiel M.D. [id number]
[2022-08-09] MEDS: pantoprazole 40 mg SDV IVP (03:23)
[2022-08-09] MEDS: dextrose 5%-sod chloride 0.9% 1,000 ML 100 ML IV (03:23)
[2022-08-09 03:41] LABS: Add Urine Microscopic? NO; Charge for UA Resulting for Rev
[2022-08-09 03:45] LABS: Bilirubin Urine Neg (Negative); Blood Urine Neg (Negative); Glucose Urine UA Norm (Normal); Ketones Urine Negative (Negative); Leukocyte Esterase Urine Negative (Negative); Nitrate Urine Negative (Negative); Protein Urine Neg (Negative); Specific Gravity, Urine 1.015 (1.005-1.030); Urine Appearance Clear (CLEAR); Urine Color Yellow (Yellow); Urobilinogen Urine Neg (Negative); pH Urine 6 (5-7)
[2022-08-09] MEDS: ipratropium-albuterol 3 mL Neb INHALATION ×3 (04:27→12:37)
--- NOTE | 2022-08-09 05:37 | PC.NURSE ---
Upon pt arrival to the unit pt had a 100 mcg fentanyl patch on left chest. Patch remains in place on pt left chest.
[2022-08-09 06:48] LABS: INR 1.12 (0.8-1.2)
[2022-08-09 06:51] LABS: Ammonia 41 umol/L (11-51)
[2022-08-09 06:56] LABS: Troponin(5th) Baseline 16 ng/L (0-10)
[2022-08-09 07:06] LABS: NT Pro B Type Natriuretic Pept 4587 pg/mL (0-450); Procalcitonin 0.38 ng/mL (0-0.5); Thyroid Stimulating Hormone 78.71 uIU/mL (0.27-4.20)
--- NOTE | 2022-08-09 07:14 | PC.NURSE ---
Bedside Report given to Elizabeth HOLLIS
[2022-08-09 07:17] LABS: C Reactive Protein 14.3 mg/L (0.0-4.9)
--- NOTE | 2022-08-09 07:54 | ECG_ITS ---
[facility] Test Date: 2022-08-09 Pat Name: Donita Cam Department: Room: 252 Gender: Female Insulating Machine Operator: : 1945 Requested By: Steven Boone Order Number: [id number] Jose Alfredo MD: Miguelangel Post M.D. Measurements Intervals [place] Rate: 72 P: 81 [place]: 142 QRS: 97 QRSD: 101 T: 66 QT: 431 QTc: 474 Interpretive Statements SINUS RHYTHM BORDERLINE RIGHT AXIS DEVIATION [QRS AXIS > 90] MODERATE T-WAVE ABNORMALITY, CONSIDER ANTEROLATERAL ISCHEMIA [-0.1+ mV T-WAVE IN V3-V6] Compared to ECG 08/09/2022 03:48:34 No significant changes Electronically Signed On 08-10-2022 7:49:28 PRINTING PLATE CLERK by Miguelangel Post M.D. [id number]
[2022-08-09] MEDS: budesonide 0.5 mg/2 mL Neb INHALATION ×2 (07:56→20:00)
[2022-08-09 08:46] LABS: Troponin 5 2HR 16.35 ng/L (0-10)
[2022-08-09] MEDS: famotidine 20 mg Tablet PO ×2 (08:54→17:24)
[2022-08-09 08:55] LABS: Troponin 5 2HR Delta 0.35 ABS# (0-10)
[2022-08-09 09:59] LABS: Bilirubin Urine Neg (Negative); Blood Urine 2+ (Negative); Glucose Urine UA Norm (Normal); Ketones Urine Negative (Negative); Nitrate Urine Negative (Negative); Protein Urine Neg (Negative); Urine Appearance Clear (CLEAR); Urine Color Yellow (Yellow); Urobilinogen Urine 1 mg/dL (Negative); pH Urine 6 (5-7)
[2022-08-09 10:00] LABS: Add Urine Culture? No; Add Urine Microscopic? YES; Bacteria Urine TRACE /hpf; Leukocyte Esterase Urine Trace (Negative); RBC Urine 0-4 /hpf (0-2); Squamous Epithelial Cell Urine 0-4 /hpf (0-5); WBC Urine 0-4 /hpf (0-5)
--- NOTE | 2022-08-09 11:15 | PM.PN ---
Subjective Subjective: Donita reports she has some hip pain, but it is tolerable on her current medicine regimen. No other complaints currently. History and physical reviewed. Medications: Reviewed: Yes Vitals/I&O/Wt Last Vital Signs Temp 97.4 F L 08/09/22 07:58 Pulse 77 08/09/22 08:04 Resp 18 08/09/22 07:58 BP 159/73 08/09/22 07:58 Pulse Ox 100 08/09/22 07:58 O2 Del Method 08/09/22 07:58 O2 Flow Rate 4 08/09/22 07:57 08/08/22 08/09/22 08/09/22 22:59 06:59 14:59 Output Total Balance -25 / - Weight last 48 hrs Weight 40.37 kg Weight 40.823 kg Physical Exam Narrative: General exam demonstrates a white female, no distress Neck is supple no lymphadenopathy or thyromegaly Cardiovascular regular rate and rhythm, no murmur Lungs clear but distant Abdomen is soft with positive bowel sounds Extremities no cyanosis clubbing or edema Urinary Catheter Management: Baeza: Cath Placed During This Visit: yes Reason for Continuing Indwelling Catheter: Other Urinary Catheter Date of Insertion: 08/09/22 Urinary Catheter Time of Insertion: 02:38 Data 08/08/22 23:08 08/08/22 23:08 Micro: Microbiology 08/09/22 06:22 Blood Culture - Preliminary Blood SPECIMEN COLLECTED 08/09/22 06:20 Blood Culture - Preliminary Blood SPECIMEN COLLECTED A&P Assessment and plan (1) Closed right hip fracture: N.p.o. currently Orthopedic consultation Bedrest currently At this point in time family is requesting repair if possible (2) Hepatocellular carcinoma: Patient has been on hospice Continue pain control (3) Cancer cachexia: (4) Fall: Patient with history of fall Encourage hydration Will still be a potential fall risk. Therapy consultations to reduce risk, following hip surgery (5) History of COPD: Continue oxygen currently Wean as tolerated Pulmonary toilet Chest x-ray showed no infiltrate (6) Hyponatremia: Likely related to her cancer diagnosis. Continue to follow closely. Reduce fluids Attestations Medical Necessity Statement*: Needs continued hospitalization for definitive treatment of her hip fracture Coding Level of Care Code Acute Code for Chg Fwd Diagnoses Closed right hip fracture S72.001A Hepatocellular carcinoma C22.0 Cancer cachexia R64 Fall W19.XXXA History of COPD Z87.09 Hyponatremia E87.1
[2022-08-09] MEDS: dextrose 5%-sod chloride 0.9% 1,000 ML 75 ML IV (12:20)
[2022-08-09] MEDS: HYDROmorphone 1 mg/mL INJ 1 mL 0.5 MG IVP ×2 (12:30→17:44)
[2022-08-09 12:40] LABS: Troponin 5 6HR 15.94 ng/L (0-10)
[2022-08-09 12:41] LABS: Troponin 5 6HR Delta -0.06 ng/L (0-12)
[2022-08-09 15:00] LABS: Anion Gap 13.5 (5-19); Blood Urea Nitrogen 14 mg/dL (8-23); Calcium 8.5 mg/dL (8.5-10.5); Carbon Dioxide 30 mmol/L (22-29); Chloride 91 mmol/L (98-107); Creatinine Clr Calc Pharmacy 38.1272; Glucose 187 mg/dL (65-115); Osmolality Calculated 277 mOsm/kg (285-295); Potassium 3.5 mmol/L (3.5-5.1); Sodium 131 mmol/L (136-145)
[2022-08-09] MEDS: albuterol 2.5 mg/3 mL Neb INHALATION ×2 (15:22→20:01)
[2022-08-09] MEDS: ipratropium 0.5 mg/2.5 mL Neb INHALATION ×2 (15:22→20:00)
--- NOTE | 2022-08-09 16:24 | PM.CONSULT ---
Providers/Reason For Consult Consulting Physician/Specialty*: Belinda Christie MD Reason for Consult*: Right intertrochanteric hip fracture Requesting Physician: David Wing MD Attending Physician: Quang Zhong MD History of Present Illness History of Present Illness Donita Cam is a 77 year old female who presented to the emergency department last evening after a fall. She is on hospice at home, and she noted that in the morning, her home health nurse left to go to the grocery store. While the aide was out, she was ambulating in her home, she felt dizzy, and fell onto her right side on the floor. It was several hours before her family found her. She complained of right hip pain upon presentation to the emergency department. Review of Systems Const: Denies: fever(s) or chills Eyes: Denies: change in vision Card: Reports: lightheadedness; Denies: chest pain, palpitations or syncope Resp: Reports: non-productive cough; Denies: dyspnea GI: Denies: nausea, vomiting, hematemesis or melena : Denies: flank pain, dysuria or urinary frequency Musc: Reports: back pain Neuro: Denies: headache(s) or vertigo Endo: Denies: polyuria or polydipsia Amado/Lymph: Reports: easy bruising Medications/Allergies Home Medications Medication Instructions Recorded Confirmed Last Taken Type albuterol sulfate 90 mcg/actuation 2 puff inhalation 6XD PRN 08/22/20 08/09/22 08/24/20 History aerosol inhaler Shortness Of Breath alprazolam 0.25 mg tablet (Xanax) 0.25 mg PO DAILY PRN Anxiety 08/22/20 08/09/22 08/24/20 History citalopram 10 mg tablet 10 mg PO DAILY 08/22/20 08/09/22 08/24/20 History wdjcdfsroymd-teovyxab-zpzhjw tablet 1 tab PO DAILY 08/22/20 08/09/22 08/24/20 History tiotropium 2.5 mcg-olodaterol 2.5 2 puff inhalation DAILY 08/22/20 08/09/22 08/24/20 History mcg/actuation mist for inhalation (Stiolto Respimat) vitamin E 670 mg (1,000 unit) 1,000 unit PO DAILY 02/12/0508/09/22 08/24/20 History capsule hydrocodone 5 mg-acetaminophen 325 1 tab PO Q6H PRN pain #14 tabs 08/25/20 08/09/22 Unknown Rx mg tablet ([place]) fentanyl 100 mcg/hr transdermal 100 mcg topical Q72H 08/09/22 08/09/22 Unknown History patch fluticasone propionate 110 2 puff inhalation BID PRN 08/09/22 08/09/22 Unknown History mcg/actuation HFA aerosol inhaler Shortness Of Breath (Flovent HFA) gabapentin 100 mg capsule 100 mg PO BEDTIME 08/09/22 08/09/22 Unknown History omeprazole 20 mg capsule,delayed 20 mg PO DAILY 08/09/22 08/09/22 Unknown History release ondansetron HCl 4 mg tablet 4 - 8 mg PO Q4H PRN Nausea 08/09/22 08/09/22 Unknown History scopolamine base 1 mg over 3 days 1 patch transdermal Q72H PRN Nausea 08/09/22 08/09/22 Unknown History transdermal patch trazodone 50 mg tablet 50 mg PO BEDTIME 08/09/22 08/09/22 Unknown History Allergies Allergy/AdvReac Type Severity Reaction Status Date / Time No Known Allergies Allergy Verified 09/12/20 17:33 Current Medications Generic Name Dose Route Start Last Admin Trade Name Freq PRN Reason Stop Dose Admin Albuterol Sulfate 2.5 mg 08/09/22 16:00 08/09/22 15:22 Albuterol 2.5 Mg/3 Ml Neb INHALATION 2.5 mg Q4H.RESPIRATORY BREANNA Administration Budesonide 0.5 mg 08/09/22 08:00 08/09/22 07:56 Budesonide 0.5 Mg/2 Ml Neb INHALATION 0.5 mg BID.RESPIRATORY BREANNA Administration Famotidine 20 mg 08/09/22 09:00 08/09/22 08:54 Famotidine 20 Mg Tablet PO 20 mg BID BREANNA Administration Hydromorphone HCl 0.5 mg 08/09/22 02:09 08/09/22 12:30 Hydromorphone 1 Mg/Ml Inj 1 Ml IVP 0.5 mg Q4H PRN Administration pain Dextrose/Sodium Chloride 1,000 mls @ 75 mls/hr 08/09/22 02:09 08/09/22 12:20 Dextrose 5%-Sod Chloride 0.9% IV 75 mls/hr .[id number] BREANNA Administration Ipratropium [place] 0.5 mg 08/09/22 16:00 08/09/22 15:22 Ipratropium 0.5 Mg/2.5 Ml Neb INHALATION 0.5 mg Q4H.RESPIRATORY BREANNA Administration Multivitamins/Minerals 1 tab 08/09/22 09:00 08/09/22 08:54 Multivitamin W/Minerals Tablet PO 1 tab DAILY BREANNA Administration Pantoprazole Sodium 40 mg 08/09/22 02:09 08/09/22 03:23 Pantoprazole 40 Mg Sdv IVP 40 mg Q24H BREANNA Administration PFSH Acute PFSH: Medical History (Updated 08/09/22 @ 17:37 by Belinda Christie MD) Hepatocellular carcinoma History of COPD History of gastroesophageal reflux (GERD) History of throat cancer Surgical History (Updated 08/09/22 @ 01:19 by Steven Boone MD) History of hysterectomy Family History (Updated 08/09/22 @ 01:20 by Steven Boone MD) Mother Stroke Father Lung cancer Social History (Updated 08/09/22 @ 01:20 by Steven Boone MD) Smoking and tobacco status: current every day smoker Second hand smoke exposure: No Alcohol intake: never Substance/Drug Use: never Lives independently: Yes Vitals/I&O/Wt Last Vital Signs Temp 98.0 F 08/09/22 12:00 Pulse 84 08/09/22 15:23 Resp 16 08/09/22 15:23 BP 162/70 08/09/22 12:00 Pulse Ox 95 08/09/22 15:23 O2 Del Method 08/09/22 15:23 O2 Flow Rate 2 08/09/22 15:23 08/09/22 08/09/22 08/09/22 06:59 14:59 22:59 Intake Total 1135 / 1135 Output Total Balance -25 / -25 1135 / 1135 Weight last 48 hrs Weight 89 lb Weight 90 lb Physical Exam Urinary Catheter Management: Baeza: Cath Placed During This Visit: yes Reason for Continuing Indwelling Catheter: Other Urinary Catheter Date of Insertion: 08/09/22 Urinary Catheter Time of Insertion: 02:38 Data 08/08/22 23:08 08/09/22 14:15 Micro: Microbiology 08/09/22 06:22 Blood Culture - Preliminary Blood SPECIMEN COLLECTED 08/09/22 06:20 Blood Culture - Preliminary Blood SPECIMEN COLLECTED Other CT: My impression: I have personally reviewed the patient's CT of the right hip. That she was CT of the pelvis but demonstrates the hip fracture. There is an intertrochanteric hip fracture which is nondisplaced. This is also visualized on imaging subsequently obtained, but these images are more difficult to evaluate than the CT secondary to abnormal position of the lower extremity. CT demonstrates there is a right intertrochanteric hip fracture with no evidence of significant displacement. A&P Assessment and plan (1) Closed intertrochanteric fracture of right hip: Patient was admitted last evening through the emergency department with diagnosis of a left intertrochanteric hip fracture. 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 She does want to proceed with surgical intervention, and she was ambulating in her home prior to admission. Therefore, the patient will be taken to the operating room tomorrow for open reduction internal fixation of a right intertrochanteric hip fracture. Risks and complications were discussed with her. Consents were signed and questions were answered. Qualifiers: Encounter type: initial encounter Fracture alignment: nondisplaced Qualified Code(s): S72.144A - Nondisplaced intertrochanteric fracture of right femur, initial encounter for closed fracture Consult Attestations Medical Necessity Statement: Patient requires evaluation and treatment for closed intertrochanteric right hip fracture. Coding Level of Care Code Acute Code for [facility] Diagnoses Closed intertrochanteric fracture of right hip S72.144A Encounter type: initial encounter Fracture alignment: nondisplaced
[2022-08-09] MEDS: fentaNYL 100 mcg Patch 1 PATCH TRANSDERMA (20:05)
--- NOTE | 2022-08-09 20:11 | PC.NURSE ---
Removed fentanyl patch from L chest of pt and placed in sharp and placed new patch of L shoulder of pt witnessed by Laverne HOLLIS.
--- NOTE | 2022-08-09 22:39 | ED_ITS ---
HPI - Fall General: Chief Complaint: Fall Stated Complaint: fall Time Seen by Provider: 08/08/22 21:22 Source: patient and family History of Present Illness: 77 year old female who fell at home. She lives alone, and was on the floor for several hours. She presents with lower back and right hip pain with some pelvic pain and belly pain. She also hit her head and has a headache. She says that she has ?terminal cancer and is on Hospice for this. She did not lose consciousness. complaint: fall Onset (ago): hour(s) Fall from: standing Fall witnessed: no Place fall occurred: home Loss of consciousness: None Prolonged down time: yes Symptoms prior to fall: lightheadedness Context: tripped/slipped Location of injury: head and back Location of injury - extremities: Right: thigh Associated symptoms-after fall: Reports abdominal pain (chronic); Denies chest pain Review of Systems Const: Denies: fever(s) or chills Eyes: Denies: change in vision Card: Denies: chest pain Resp: Reports: dyspnea and non-productive cough GI: Reports: abdominal pain (chronic) and nausea; Denies: vomiting PFSH ED PFSH: Medical History Hepatocellular carcinoma History of COPD History of gastroesophageal reflux (GERD) History of throat cancer Surgical History (Updated 08/09/22 @ 01:19 by Steven Boone MD) History of hysterectomy Family History Mother Stroke Father Lung cancer Social History Smoking and tobacco status: current every day smoker Second hand smoke exposure: No Alcohol intake: never Substance/Drug Use: never Lives independently: Yes Physical Exam Const: COMMON NORMALS: no acute distress GENERAL APPEARANCE: cooperative and frail appearing NUTRITIONAL APPEARANCE: underweight HENMT: COMMON NORMALS: normocephalic, atraumatic and Normal external nose present HEAD & SCALP: normocephalic and atraumatic FACE & SINUS: normal facial exam and face symmetric NOSE: Normal external nose present Eye: COMMON NORMALS: Equal, round and reactive pupils present and EOMs intact bilaterally PUPIL: Yes Equal, round and reactive pupils present Neck/C-Spine: GENERAL: Yes trachea midline CERVICAL SPINE: No Cervical spine tenderness Chest: CHEST: Yes Symmetrical chest wall rise Resp: COMMON NORMALS: normal respiratory effort, No retractions, No use of accessory muscles and clear to auscultation bilaterally AUSCULTATION: clear to auscultation bilaterally Cardio: COMMON NORMALS: regular rate and regular rhythm RATE: regular rate RHYTHM: regular rhythm GI: COMMON NORMALS: Normal to inspection, nondistended, normoactive bowel sounds present : COMMON NORMALS: Yes no CVA tenderness BLADDER/KIDNEY EXAM: Yes no CVA tenderness Back/Pelvis: COMMON NORMALS: no CVA tenderness Extremity: COMMON NORMALS: no pedal edema NARRATIVE EXTREMITY EXAM: + right hip tenderness. pain with any internal rotation of the right hip. Neuro: KINA COMA SCALE: document GCS findings Kina coma scale eye opening: Spontaneous Bussey coma scale verbal response: Orientated Kina coma scale motor response: Obey commands Kina coma scale total score: 15 SENSORY EXAM: Yes extremities (intact) Psych: COMMON NORMALS: speech normal SPEECH: Yes normal speech Skin: COMMON NORMALS: no rashes or lesions noted GENERAL SKIN EXAM: no rashes or lesions noted Course Vital Signs: Vital signs: Vital Signs Temperature 97.6 F 08/09/22 19:45 Pulse Rate 82 08/09/22 19:45 Respiratory Rate 16 08/09/22 19:45 Blood Pressure 166/80 08/09/22 19:45 Pulse Oximetry 90 08/09/22 19:45 Oxygen Delivery Me thod 08/09/22 20:00 Oxygen Flow Rate 2 08/09/22 20:00 MDM - Fall Medical Decision Making 77 year old female who is thin and frail. She has right hip pain and a headache following a fall. There is a prolonged downtime. Her right hip it's quite tender. She has an intertrochanteric fracture that does not appear pathologic by CT. She does have a lytic lesion at C2 but this is only involving the cortex of the bone, and does not appear unstable on CT scan. Chest X-ray is negative. Head CT is otherwise negative besides a left mastoid effusion. She hasn't let it go lesion at S1 as well. Her white blood cell count is 11. Sodium is mildly low at 128. Liver enzymes are minimally elevated. She'll be admitted for the hip fracture. Orthopedics is consulted and aware. Hospitalist will see the patient in the ER. Lab Data 08/08/22 23:08 08/09/22 14:15 Radiology Impressions Cervical Spine CT 08/08/22 21:54 IMPRESSION: 1. Lytic lesion with focal cortical destruction in the posterior C2 vertebral body concerning for a metastatic focus. 2. No acute fracture of the cervical spine. CT scan would be recommended if there is continuing clinical concern for fracture. 3. Multilevel degenerative changes of varying severity in the visualized spine. Moderate spinal canal stenosis at C3-C4, C4-C5, C5-C6, and C6-C7. Multilevel foraminal stenosis of varying severity in the visualized spine. 4. Large amount of fluid in the left mastoid air cells and fluid in the left middle ear cavity suspicious for otomastoiditis. 5. Extensive body wall edema. 6. Incidental/nonacute findings are listed in the report. ADDENDUM: 08/08/222327 Urgent results were discussed with DAVID Briceño on 08/08/2022 at 11:26 PM LAMINATOR [employer]FORMS. Chest X-Ray 08/08/22 21:54 IMPRESSION: 1. No acute cardiopulmonary process. 2. Incidental/nonacute findings are listed in the report. Head CT 08/08/22 21:54 IMPRESSION: 1. No acute intracranial abnormality. 2. Left mastoid effusion. Pelvis CT 08/08/22 21:54 IMPRESSION: 1. Mildly comminuted and minimally displaced intertrochanteric fracture of the right femur. 2. Lytic lesion in the S1 segment of the sacrum in the midline concerning for a metastatic focus. 3. Findings suspicious for cirrhosis in the visualized liver. Large volume ascites suspicious for portal hypertension. 4. Partially visualized lesion in the right lobe of the liver concerning for a primary hepatocellular carcinoma or metastatic lesion. 5. Diffuse, moderate wall thickening of the bladder. In the correct clinical setting, this may suggest cystitis. Recommend correlation with laboratory findings. Alternatively, this may be secondary to chronic outlet obstruction. 6. Scattered diverticula in the sigmoid colon. No evidence for diverticulitis. 7. Extensive body wall edema. 8. Incidental/nonacute findings are listed in the report. ADDENDUM: 08/08/222327 Urgent results were discussed with DAVID Briceño on 08/08/2022 at 11:27 PM LAMINATOR [employer]MS. Femur X-Ray 08/09/22 00:34 IMPRESSION: Nondisplaced intertrochanteric femoral fracture. Laboratory Results WBC 11.0 10^3/uL (4.0-10.0) H 08/08/22 23:08 RBC 3.57 10^6/uL (4.1-5.3) L 08/08/22 23:08 Hgb 11.3 g/dL (11.5-15.3) L 08/08/22 23:08 Hct 34.4 % (37.0-47.0) L 08/08/22 23:08 MCV 96.4 fl (81-99) 08/08/22 23:08 MCH 31.7 pg (28.0-34.0) 08/08/22 23:08 MCHC 32.8 g/dL (30.0-36.0) 08/08/22 23:08 RDW 15.7 % (12.1-15.1) H 08/08/22 23:08 Plt Count 523 10^3/cmm (130-400) H 08/08/22 23:08 MPV 9.9 fL (7.4-10.4) 08/08/22 23:08 Neut % (Auto) 83.9 % 08/08/22 23:08 Lymph % (Auto) 9.1 % 08/08/22 23:08 [place] % (Auto) 6.1 % 08/08/22 23:08 Eos % (Auto) 0.1 % 08/08/22 23:08 Baso % (Auto) 0.2 % 08/08/22 23:08 Neut # (Auto) 9.21 10^3/uL (1.8-7.7) H 08/08/22 23:08 Lymph # (Auto) 1.0 10^3/uL (0.8-4.8) 08/08/22 23:08 [place] # (Auto) 0.7 10^3/uL (0.2-0.9) 08/08/22 23:08 Eos # (Auto) 0.0 10^3/uL (0.0-0.8) 08/08/22 23:08 Baso # (Auto) 0.0 10^3/uL (0.0-0.1) 08/08/22 23:08 Nucleated RBC % (auto) 0 % 08/08/22 23:08 Nucleated RBCs # 0.0 /100WBC 08/08/22 23:08 Sodium 128 mmol/L (136-145) L 08/08/22 23:08 Potassium 3.5 mmol/L (3.5-5.1) 08/08/22 23:08 Chloride 86 mmol/L (98-107) L 08/08/22 23:08 Carbon Dioxide 34 mmol/L (22-29) H 08/08/22 23:08 Anion Gap 11.5 (5-19) 08/08/22 23:08 BUN 16 mg/dL (8-23) 08/08/22 23:08 Creatinine 0.4 mg/dL (0.5-0.9) L 08/08/22 23:08 GFR Calculation Not Reportable 08/08/22 23:08 Glucose 93 mg/dL (65-115) 08/08/22 23:08 Calculated Osmolality 267 mOsm/kg (285-295) L 08/08/22 23:08 Calcium 8.8 mg/dL (8.5-10.5) 08/08/22 23:08 Total Bilirubin 0.6 mg/dL (0.15-1.2) 08/08/22 23:08 AST 128 U/L (0-32) H 08/08/22 23:08 ALT 52 U/L (0-33) H 08/08/22 23:08 Alkaline Phosphatase 676 U/L (35-105) H 08/08/22 23:08 Creatine Kinase 81 U/L (26-192) 08/08/22 23:08 Total Protein 6.7 g/dL (6.6-8.7) 08/08/22 23:08 Albumin 3.8 g/dL (3.5-5.2) 08/08/22 23:08 Globulin 2.9 g/dL (1.3-4.6) 08/08/22 23:08 Discharge Plan Discharge Patient Disposition: Admitted As Inpatient Admit Provider: Steven Boone Clinical Impression: 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
[2022-08-10] VITALS (29 sets, daily range): BP systolic 103–167; BP diastolic 57–93; PULSE 67–86; RESP 14–20; TEMP 36.5–37.3; O2SAT 90–100; BMI 16.2
--- NOTE | 2022-08-10 | XR_ITS ---
WS: [id number] Exam: XR hip RT 2-3V wo/w pel* [id number] Date/Time of Exam: 08/10/2022 12:00 AM Reason For Exam: or pic, gamma nail. Comparison 08/09/2022. An intertrochanteric fracture of the right hip is now stabilized with an intramedullary rashad and femor al neck screw in the excellent position for healing. Postoperative changes in the adjacent soft tissu es. XR/XR hip RT 2-3V wo/w pel* [id number] IMPRESSION: 1. Satisfactory ORIF involving an intertrochanteric fracture of the right hip.
[2022-08-10] MEDS: ipratropium 0.5 mg/2.5 mL Neb INHALATION ×4 (00:04→23:26)
[2022-08-10] MEDS: albuterol 2.5 mg/3 mL Neb INHALATION ×5 (00:04→23:26)
[2022-08-10] MEDS: HYDROmorphone 1 mg/mL INJ 1 mL 0.5 MG IVP (01:06)
[2022-08-10] MEDS: pantoprazole 40 mg SDV IVP (01:11)
[2022-08-10] MEDS: dextrose 5%-sod chloride 0.9% 1,000 ML 75 ML IV ×2 (01:14→13:55)
[2022-08-10 02:54] LABS: Basophils % 0.3 %; Eosinophils % 0.1 %; Hematocrit 28.8 % (37.0-47.0); Hemoglobin 9.6 g/dL (11.5-15.3); Lymphocytes % 7.7 %; Mean Corpuscular HGB Conc 33.3 g/dL (30.0-36.0); Mean Corpuscular Hemoglobin 32.4 pg (28.0-34.0); Mean Corpuscular Volume 97.3 fl (81-99); Mean Platelet Volume 9.7 fL (7.4-10.4); Monocytes # 0.7 10^3/uL (0.2-0.9); Monocytes % 4.8 %; Neutrophils # 11.79 10^3/uL (1.8-7.7); Neutrophils % 86.8 %; Nucleated Red Blood Cells % 0 %; Platelet Count 381 10^3/cmm (130-400); Red Blood Count 2.96 10^6/uL (4.1-5.3); Red Cell Distribution Width 15.9 % (12.1-15.1); White Blood Count 13.6 10^3/uL (4.0-10.0)
[2022-08-10 03:19] LABS: Anion Gap 10.5 (5-19); Blood Urea Nitrogen 10 mg/dL (8-23); Carbon Dioxide 31 mmol/L (22-29); Chloride 93 mmol/L (98-107); Glucose 120 mg/dL (65-115); Osmolality Calculated 272 mOsm/kg (285-295); Potassium 3.5 mmol/L (3.5-5.1); Sodium 131 mmol/L (136-145)
[2022-08-10 03:21] LABS: Creatinine Clr Calc Pharmacy 38.1272
--- NOTE | 2022-08-10 07:34 | ANES.PREANE2 ---
Pre-Anesthetic Assessment Height/Weight: Height 1.57 m Weight 40.37 kg Temp Pulse Resp BP Pulse Ox O2 Del Method O2 Flow Rate 97.9 F 77 18 159/93 100 4 08/10/22 07:29 08/10/22 07:29 08/10/22 07:29 08/10/22 07:29 08/10/22 07:29 08/10/22 07:29 08/10/22 07:29 Preop Diagnosis: Right intertrochanteric hip fracture Operation Date: 08/10/22 10:25 Proposed Procedures p Trochanteric Femoral Nail(Right) - Belinda Christie MD Familial anesthetic complications: None Was Beta Wild taken within 24 hours: N/A Was Clonidine taken within 24 hours: N/A Last intake: Intake Last Liquid Date 08/10/22 Last Liquid Time 19:00 Social No alcohol and No tobacco former smoker Exam alert, oriented x 3, clear to auscultation bilaterally and regular rate & rhythm Airway Mallampati: Class I Dentition: chipped and other (poor dentition) Comments: Comments: 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 Patient consents to intubation and medications/fluid/blood for resuscitation. Does not consent to chest compression or defibrillation. Medications/Allergies Home Medications Medication Instructions Recorded Confirmed Last Taken Type albuterol sulfate 90 mcg/actuation 2 puff inhalation 6XD PRN 08/22/20 08/09/22 08/24/20 History aerosol inhaler Shortness Of Breath alprazolam 0.25 mg tablet (Xanax) 0.25 mg PO DAILY PRN Anxiety 08/22/20 08/09/22 08/24/20 History citalopram 10 mg tablet 10 mg PO DAILY 08/22/20 08/09/22 08/24/20 History yxsankjretff-fpupnejv-lvrjgw tablet 1 tab PO DAILY 08/22/20 08/09/22 08/24/20 History tiotropium 2.5 mcg-olodaterol 2.5 2 puff inhalation DAILY 08/22/20 08/09/22 08/24/20 History mcg/actuation mist for inhalation (Stiolto Respimat) vitamin E 670 mg (1,000 unit) 1,000 unit PO DAILY 08/22/20 08/09/22 08/24/20 History capsule hydrocodone 5 mg-acetaminophen 325 1 tab PO Q6H PRN pain #14 tabs 08/25/20 08/09/22 Unknown Rx mg tablet ([place]) fentanyl 100 mcg/hr transdermal 100 mcg topical Q72H 08/09/22 08/09/22 Unknown History patch fluticasone propionate 110 2 puff inhalation BID PRN 08/09/22 08/09/22 Unknown History mcg/actuation HFA aerosol inhaler Shortness Of Breath (Flovent HFA) gabapentin 100 mg capsule 100 mg PO BEDTIME 08/09/22 08/09/22 Unknown History omeprazole 20 mg capsule,delayed 20 mg PO DAILY 08/09/22 08/09/22 Unknown History release ondansetron HCl 4 mg tablet 4 - 8 mg PO Q4H PRN Nausea 08/09/22 08/09/22 Unknown History scopolamine base 1 mg over 3 days 1 patch transdermal Q72H PRN Nausea 08/09/22 08/09/22 Unknown History transdermal patch trazodone 50 mg tablet 50 mg PO BEDTIME 08/09/22 08/09/22 Unknown History Allergies Allergy/AdvReac Type Severity Reaction Status Date / Time No Known Allergies Allergy Verified 09/12/20 17:33 Current Medications Generic Name Dose Route Start Last Admin Trade Name Freq PRN Reason Stop Dose Admin Albuterol Sulfate 2.5 mg 08/09/22 16:00 08/10/22 03:05 Albuterol 2.5 Mg/3 Ml Neb INHALATION 2.5 mg Q4H.RESPIRATORY BREANNA Administration Budesonide 0.5 mg 08/09/22 08:00 08/09/22 20:00 Budesonide 0.5 Mg/2 Ml Neb INHALATION 0.5 mg BID.RESPIRATORY BREANNA Administration Famotidine 20 mg 08/09/22 09:00 08/09/22 17:24 Famotidine 20 Mg Tablet PO 20 mg BID BREANNA Administration Fentanyl 1 patch 08/09/22 21:00 08/09/22 20:05 Fentanyl 100 Mcg Patch TRANSDERMA 1 patch Q72H BREANNA Administration Hydromorphone HCl 0.5 mg 08/09/22 02:09 08/10/22 01:06 Hydromorphone 1 Mg/Ml Inj 1 Ml IVP 0.5 mg Q4H PRN Administration pain Dextrose/Sodium Chloride 1,000 mls @ 75 mls/hr 08/09/22 02:09 08/10/22 01:14 Dextrose 5%-Sod Chloride 0.9% IV 75 mls/hr .[id number] BREANNA Administration Ipratropium [place] 0.5 mg 08/09/22 16:00 08/10/22 03:05 Ipratropium 0.5 Mg/2.5 Ml Neb INHALATION 0.5 mg Q4H.RESPIRATORY BREANNA Administration Multivitamins/Minerals 1 tab 08/09/22 09:00 08/09/22 08:54 Multivitamin W/Minerals Tablet PO 1 tab DAILY BREANNA Administration Pantoprazole Sodium 40 mg 08/09/22 02:09 08/10/22 01:11 Pantoprazole 40 Mg Sdv IVP 40 mg Q24H BREANNA Administration PFSH Anesthesia Medical History Hepatocellular carcinoma History of COPD History of gastroesophageal reflux (GERD) History of throat cancer Surgical History (Updated 08/09/22 @ 01:19 by Steven Boone MD) History of hysterectomy Family History Mother Stroke Father Lung cancer Social History Smoking and tobacco status: current every day smoker Second hand smoke exposure: No Alcohol intake: never Substance/Drug Use: never Lives independently: Yes Data Anesthesia 08/10/22 02:28 08/10/22 02:28 Short CBC 08/08/22 08/10/22 Range/Units 23:08 02:28 WBC 11.0 H 13.6 H (4.0-10.0) 10^3/uL Hgb 11.3 L 9.6 L (11.5-15.3) g/dL Hct 34.4 L 28.8 L (37.0-47.0) % MCV 96.4 97.3 (81-99) fl Plt Count 523 H 381 (130-400) 10^3/cmm Neut % (Auto) 83.9 86.8 % Neut # (Auto) 9.21 H 11.79 H (1.8-7.7) 10^3/uL BMP 08/08/22 08/09/22 08/10/22 23:08 14:15 02:28 Sodium 128 L 131 L 131 L Potassium 3.5 3.5 3.5 Chloride 86 L 91 L 93 L Carbon Dioxide 34 H 30 H 31 H BUN 16 14 10 Creatinine 0.4 L 0.5 0.4 L Glucose 93 187 H 120 H Calcium 8.8 8.5 8.0 L Cardiac Enzymes 08/08/22 08/09/22 08/09/22 Range/Units 23:08 06:22 06:22 Creatine Kinase 81 (26-192) U/L Troponin T Baseline 16 H (0-10) ng/L Troponin T 120 Minute (0-10) ng/L Delta Troponin T (0-10) ABS# Troponin T Hi Sens 6Hr (0-10) ng/L Troponin T Hi Sens 6Hr Delta (0-12) ng/L NT-Pro-B Natriuret Pep 4587 H (0-450) pg/mL 08/09/22 08/09/22 Range/Units 08:04 12:12 Creatine Kinase (26-192) U/L Troponin T Baseline (0-10) ng/L Troponin T 120 Minute 16.35 H (0-10) ng/L Delta Troponin T 0.35 (0-10) ABS# Troponin T Hi Sens 6Hr 15.94 H (0-10) ng/L Troponin T Hi Sens 6Hr Delta -0.06 L (0-12) ng/L NT-Pro-B Natriuret Pep (0-450) pg/mL Liver Function 08/08/22 Range/Units 23:08 Total Bilirubin 0.6 (0.15-1.2) mg/dL AST 128 H (0-32) U/L ALT 52 H (0-33) U/L Alkaline Phosphatase 676 H (35-105) U/L Albumin 3.8 (3.5-5.2) g/dL Urine 08/09/22 08/09/22 Range/Units 02:45 09:39 Urine Color Yellow Yellow (Yellow) Urine Appearance Clear Clear (CLEAR) Urine pH 6 6 (5-7) Ur Specific [place] 1.015 1.020 (1.005-1.030) Urine Protein Neg Neg (Negative) Urine Glucose (UA) Norm Norm (Normal) Urine Ketones Negative Negative (Negative) Urine Nitrate Negative Negative (Negative) Urine Bilirubin Neg Neg (Negative) Ur Leukocyte Esterase Negative Trace H (Negative) Urine RBC 0-4 H (0-2) /hpf Urine WBC 0-4 H (0-5) /hpf Coags 08/09/22 08/09/22 06:22 06:22 PT 14.70 INR 1.12 C-Reactive Protein 14.3 H Microbiology 08/09/22 06:22 Blood Culture - Preliminary Blood NEGATIVE TO DATE 08/09/22 06:20 Blood Culture - Preliminary Blood NEGATIVE TO DATE Cardiac Studies: No Data to Display
[2022-08-10] MEDS: sodium chloride 0.9% 1,000 ML 30 ML IV (07:48)
[2022-08-10] MEDS: CELEcoxib 200 mg Capsule 400 MG PO (07:50)
[2022-08-10] MEDS: ceFAZolin 2,000 MG in sodium chloride 0.9% (plus) 50 ML 100 MG IV ×3 (07:55→23:35)
[2022-08-10] MEDS: ceFAZolin 1,000 mg SDV 1000 MG IRRIGATION (08:40)
--- NOTE | 2022-08-10 09:46 | SUR.PHASEI ---
0908 PT TO PACU 4 PT SLEEPS WITH GOOD RESP EFFORT NOTED SATS 100% ON 8L MASK HOB AT 20 DEGREES , MONIOTR SR WITH NO ECTOPY, RT HIP DRESSINGS X 3 OPSITES D/I FIRST ICE TO HIP, DISTAL RT FOOT PINK WARM WITH STRONG REGULAR PULSE MARKED X 2 , FOOT PUMP TO LT FOOT, IV TO LT WRIST #20 WITH NS 500 AT KVO RATE, #20 TO RT AC PIID FOR NOW, DICKEY TO DD WITH DARK YELLOW CLEAR URINE TO TUBING AND BAG, STATLOCK TO SECURE TO LT INNER THIGH, APPROX 200ML EMPTIED FROM BAG. PT DOES NOT AWAKE TO VOICE. [id number] DR ROSSI AT BEDSIDE, TALKED TO SON PER PHONE, ALL QUESTIONS ANSWERED. PT STILL DOES NOT AWAKE, PT ON NC 3LN O2 NOW..
--- NOTE | 2022-08-10 09:54 | P.OP_ITS ---
Operative Report Date of procedure: August 10, 2022 Pre-op diagnosis: Right intertrochanteric hip fracture Post-op diagnosis: Right intertrochanteric hip fracture Procedure done: Open reduction internal fixation right intertrochanteric hip fracture Implants: Sebastián gamma 3 trochanteric nail size 11 mm x 180 mm x 125 degrees with a 10.5 mm x 90 mm lag screw and a distal 5 mm x 32.5 mm distal locking screw Pathology: none sent Surgeon: Belinda Christie [employer] Head: None Anesthesia: General (Intubated, ASA 4) Estimated blood loss (mL): 50 IV fluids (mL): 400 Urine output (mL): 200 Complications: None Findings: Minimally displaced right intertrochanteric hip fracture Condition: stable Disposition: PACU (Then return to floor for postoperative rehabilitation and pain management) Brief History: Donita Cam is a 77 year old female who presented to the emergency department last evening after a fall.? She is on hospice at home, and she noted that in the morning, her home health nurse left to go to the grocery store.? While the aide was out, she was ambulating in her home, she felt dizzy, and she fell onto her right side on the floor.? It was several hours before her family found her.? She complained of right hip pain upon presentation to the emergency department. She was found to have a nondisplaced intertrochanteric right hip fracture. Plans were made for Open Reduction Internal Fixation of Right Intertrochanteric hip fracture. Procedure: Patient is brought to the operating theater. After undergoing adequate general anesthesia with intubation, ASA 4, the patient was transferred to the fracture table, positioned on the table and fluoroscopic guidance obtained throughout the surgical procedure. Prior to the commencement of the surgical procedure, a surgical pause was performed. At the time of the surgical pause, we confirmed the site and side of surgery as well as preoperative surgical markings and appropriate and timely administration of IV antibiotics, Ancef 2 gm. Availability of equipment was also confirmed. Fluoroscopy was used to confirm the fracture was appropriately reduced in both AP and lateral planes. An incision was then made slightly above the greater trochanter to allow access to the greater trochanter. An awl was used to enter the greater trochanter, and a guidewire was subsequently placed. Once the guidewire was confirmed to be in appropriate position in AP and lateral planes, reaming was accomplished over this to allow for the proximal diameter of the nail. Guidewire was then removed and an 11 mm nail was placed into appropriate position with positioning being confirmed in AP and lateral planes on the x-ray. It passed without difficulty. Guidewire was then passed through the jigging system into the femoral head. We wanted to be center or slightly inferior and posterior to center. Guidewire was placed into appropriate position. Once the guidewire was in appropriate position and this position was confirmed by x-ray. This was then measured and we chose a 10.5 mm by 90 mm lag screw. We reamed to allow for the lag screw to be placed. The 90 mm lag screw was then passed into the femoral head through the trochanteric nail. This was passed uneventfully and again position was confirmed in AP and lateral planes. Compression was obtained under fluoroscopic guidance. The set screw was then placed in position, tightened completely, and subsequently backed off one-quarter turn. The construct was left in position and attention was directed distally. Cannulas were again used to determine appropriate placement for the distal screw. This was placed in position without difficulty. It was measured off of the drill. The appropriate length screw was then obtained and placed in position without difficulty. Once the screw was in position, we confirmed appropriate placement of the components, and we removed the jigging system. Attention was then directed to closure. The hip was copiously irrigated with normal saline with antibiotics. Following this it was dried and closed. Tensor fascia bartolome was closed proximally with 0 Vicryl in an interrupted fashion. Subcutaneous tissues were closed with 2-0 Monocryl, and the skin was closed with a continuous 3-0 Monocryl subcuticular stitch. This was then covered with Tegaderm. The patient was removed from the fracture table and returned to recovery in satisfactory condition. The patient will be discharged to the floor for postoperative r ehabilitation and pain management. There were no specimens obtained. Related Problem List Diagnoses (1) Closed intertrochanteric fracture of right hip:
--- NOTE | 2022-08-10 09:58 | SUR.PHASEI ---
PT RESTING QUIETLY WITH GOOD RESP EFFORT, RT HIP DRESSING AND DISTAL FOOT PULSES UNCHANGED, PT DOES NOT AWAKE TO VOICE OR TOUCH.
--- NOTE | 2022-08-10 10:33 | PM.PN ---
Subjective Subjective: Patient opens eyes, acknowledges my presence. She has just come back from surgery, after having right hip surgery for fracture. No complications with surgery. Medications: Reviewed: Yes Vitals/I&O/Wt Last Vital Signs Temp 99 F 08/10/22 10:15 Pulse 71 08/10/22 10:15 Resp 18 08/10/22 10:15 BP 135/82 08/10/22 10:15 Pulse Ox 98 08/10/22 10:15 O2 Del Method 08/10/22 10:15 O2 Flow Rate 3 08/10/22 10:15 08/09/22 08/10/22 08/10/22 22:59 06:59 14:59 Intake Total 240 / 1375 967.5 / 2342.5 50 / 50 Output Total 750 / 750 400 / 1150 700 / 700 Balance -510 / 625 567.5 / 1192.5 -650 / -650 Weight last 48 hrs Weight 40.37 kg Weight 40.37 kg Weight 40.823 kg Physical Exam Narrative: General exam demonstrates a white female, no distress, sleepy Neck is supple no lymphadenopathy or thyromegaly Cardiovascular regular rate and rhythm, no murmur Lungs clear but distant Abdomen is soft with positive bowel sounds Extremities no cyanosis clubbing or edema. Right hip dressing clean and dry. Good dorsiflexion right foot Urinary Catheter Management: Baeza: Cath Placed During This Visit: yes Reason for Continuing Indwelling Catheter: Other Urinary Catheter Date of Insertion: 08/09/22 Urinary Catheter Time of Insertion: 02:38 Data 08/10/22 02:28 08/10/22 02:28 Micro: Microbiology 08/09/22 09:39 Urine Culture - Preliminary Urine Catheterized 08/09/22 06:22 Blood Culture - Preliminary Blood NEGATIVE TO DATE 08/09/22 06:20 Blood Culture - Preliminary Blood NEGATIVE TO DATE A&P Assessment and plan (1) Closed right hip fracture: Appreciate orthopedics consultation Status post repair/ORIF Initiate therapy Patient indicates plan to go home. In this scenario could possibly be released as early as tomorrow depending on progress with physical therapy (2) Hepatocellular carcinoma: Patient has been on hospice Continue pain control (3) Cancer cachexia: (4) Fall: Patient with history of fall Encourage hydration Will still be a potential fall risk. Therapy consultations to reduce risk, following hip surgery (5) History of COPD: Continue oxygen currently Wean as tolerated Pulmonary toilet Chest x-ray showed no infiltrate (6) Hyponatremia: Likely related to her cancer diagnosis. Continue to follow closely. Reduce fluids Plan Allow natural Will initiate DVT prophylaxis status postsurgery. Attestations Medical Necessity Statement*: Needs continued hospitalization, for close monitoring following hip fracture surgery. Coding Level of Care Code Acute Code for Chg Fwd Diagnoses Closed right hip fracture S72.001A Hepatocellular carcinoma C22.0 Cancer cachexia R64 Fall W19.XXXA History of COPD Z87.09 Hyponatremia E87.1
--- NOTE | 2022-08-10 10:42 | SUR.PHASEI ---
PT TO FLOOR PER BED PT OPENS EYES AND PULLS AT COVERS BUT DOES NOT VERBALIZE AT THIS TIME, LT HIP DRESSING AND LT FOOT PULSES UNCHANGED, NO FAMILY IN ROOM YET. SON LINDSAY CALLED BY DR ROSSI EARLIER AND IS ON HIS WAY TO THE HOSPITAL. AID AT BEDSIDE, VSS.
--- NOTE | 2022-08-10 12:29 | ANE.PACU2 ---
Inpatient post-anesthesia follow up: Airway intact: Yes Vital signs: Temperature 99 F Pulse Rate 73 Respiratory Rate 16 Blood Pressure 135/82 Pulse Oximetry 100 Oxygen Delivery Me thod Nasal Cannula Oxygen Flow Rate 3 Fraction of Inspir ed Oxygen Hydration adequate: Yes Nausea and vomiting: No Pain level: 1 Mental status: Baseline
[2022-08-10] MEDS: oxyCODONE 5 mg IR Tab/Cap PO ×2 (14:26→19:36)
[2022-08-10] MEDS: famotidine 20 mg Tablet PO (16:45)
[2022-08-10] MEDS: ALPRAZolam 0.5 mg Tablet 0.25 MG PO (16:48)
[2022-08-10] MEDS: morphine 4 mg/mL SDV 1 mL 2 MG IVP ×2 (18:07→23:35)
--- NOTE | 2022-08-10 20:26 | PC.NURSE ---
Cecilio Thomas is stating that patient will need a wheelchair and bedside commode at home.
[2022-08-10] MEDS: budesonide 0.5 mg/2 mL Neb INHALATION (21:02)
[2022-08-11] VITALS (11 sets, daily range): BP systolic 139–152; BP diastolic 71–79; PULSE 80–88; RESP 16–20; TEMP 36.3–36.4; O2SAT 90–99
[2022-08-11] MEDS: pantoprazole 40 mg SDV IVP (00:31)
[2022-08-11] MEDS: dextrose 5%-sod chloride 0.9% 1,000 ML 75 ML IV (00:31)
[2022-08-11] MEDS: oxyCODONE 5 mg IR Tab/Cap PO ×2 (00:31→01:01)
--- NOTE | 2022-08-11 00:56 | PC.NURSE ---
Addendum entered by Emani Brown RN 08/11/22 01:14: Patient currently has Fentanyl patch to left upper back. Addendum entered by Emani Brown RN 08/11/22 01:06: The following medications have been updated on med rec to the best of my knowledge at this time: Oxycodone, Gabapentin, and Xanax. Original Note: Patient states My pain hasn't been controlled since I've been here. Patient states she is on hospice at home. Patient states I take Oxy whenever I need it at home whether it be every 2 hours or every 4 hours. I don't understand why they are only letting me have it every 6 hours here. I have a Fentanyl patch I use at home too. Dr. Sy notified. Oxy dose and frequency increased (see order). Med rec appears to have errors. Some of the medications on the med rec have been updated to the best of my ability at this time based on external med history and patient statements. Med rec will need to be verified by a source such as the patient's pharmacy.
[2022-08-11 02:35] LABS: Basophils % 0.3 %; Eosinophils % 0.1 %; Hematocrit 28.5 % (37.0-47.0); Hemoglobin 9.3 g/dL (11.5-15.3); Lymphocytes # 1.2 10^3/uL (0.8-4.8); Lymphocytes % 10.5 %; Mean Corpuscular HGB Conc 32.6 g/dL (30.0-36.0); Mean Corpuscular Hemoglobin 31.8 pg (28.0-34.0); Mean Corpuscular Volume 97.6 fl (81-99); Mean Platelet Volume 9.9 fL (7.4-10.4); Monocytes # 0.7 10^3/uL (0.2-0.9); Monocytes % 6.2 %; Neutrophils # 9.65 10^3/uL (1.8-7.7); Neutrophils % 82.6 %; Nucleated Red Blood Cells % 0 %; Platelet Count 384 10^3/cmm (130-400); Red Blood Count 2.92 10^6/uL (4.1-5.3); Red Cell Distribution Width 15.9 % (12.1-15.1); White Blood Count 11.7 10^3/uL (4.0-10.0)
[2022-08-11 03:05] LABS: Anion Gap 10.1 (5-19); Blood Urea Nitrogen 8 mg/dL (8-23); Calcium 7.9 mg/dL (8.5-10.5); Carbon Dioxide 32 mmol/L (22-29); Chloride 94 mmol/L (98-107); Glucose 107 mg/dL (65-115); Osmolality Calculated 275 mOsm/kg (285-295); Potassium 3.1 mmol/L (3.5-5.1); Sodium 133 mmol/L (136-145)
[2022-08-11 03:13] LABS: Creatinine Clr Calc Pharmacy 38.1272
[2022-08-11] MEDS: albuterol 2.5 mg/3 mL Neb INHALATION ×2 (03:45→09:15)
[2022-08-11] MEDS: ipratropium 0.5 mg/2.5 mL Neb INHALATION ×2 (03:45→09:15)
[2022-08-11] MEDS: oxyCODONE 5 mg IR Tab/Cap 10 MG PO ×2 (04:56→09:49)
[2022-08-11] MEDS: potassium chloride ER 20 mEq Tablet 40 MEQ PO ×2 (08:17→12:09)
[2022-08-11] MEDS: aspirin 325 mg EC Tablet PO (08:17)
[2022-08-11] MEDS: famotidine 20 mg Tablet PO (08:17)
[2022-08-11] MEDS: ceFAZolin 2,000 MG in sodium chloride 0.9% (plus) 50 ML 100 MG IV (08:27)
[2022-08-11] MEDS: budesonide 0.5 mg/2 mL Neb INHALATION (09:16)
--- NOTE | 2022-08-11 09:27 | P.DS_ITS ---
Discharge Providers Date of Admission: 08/09/22 00:57 Date of Discharge: August 11, 2022 Attending Provider at Admission: Steven Boone MD Attending Provider at Discharge: Quang Zhong MD Diagnoses at Discharge Discharge Diagnosis (1) Closed right hip fracture: Status: Acute (2) Hepatocellular carcinoma: Status: Acute (3) Cancer cachexia: Status: Acute (4) Fall: Status: Acute (5) History of COPD: Status: Acute (6) Hyponatremia: Status: Acute Reason for Visit Reason for Visit: fall Hospital Course Hospital Course Donita is a 77-year-old white female currently on hospice for hepatocellular carcinoma who presented after a fall. She sustained a fracture to her right hip. She was admitted to the hospital for pain control and fracture repair, which she underwent on August 10. Nail was used for repair during her ORIF procedure. She tolerated the procedure well, and was wanting to go back home on hospice the following day. Laboratory was stable. Aspirin was going to be used for DVT prophylaxis. That will be the only change in her medicine regimen. I discussed with her her hospital course and plan which she agreed with and she was given an opportunity to ask questions. She will be going into the care of her son, at home, on hospice. Physical Exam Narrative: General exam no distress, alert and oriented Neck is supple Cardiovascular regular rate and rhythm Lungs clear Abdomen is soft, positive bowel sounds Extremities no cyanosis clubbing edema, right hip incision site clean and dry Skin no rash Urinary Catheter Management: Baeza: Cath Placed During This Visit: yes, but has since been removed by the nurse Reason for Continuing Indwelling Catheter: Decision to DC Catheter Urinary Catheter Date of Insertion: 08/09/22 Urinary Catheter Time of Insertion: 02:38 Date Urinary Catheter Removed: 08/11/22 Time Urinary Catheter Discontinued: 05:04 Discharge Data Studies Completed and Pending Completed Studies During Hospitalization Category Date Time Status CT cervical spin wo con* [id number] Stat Cat Scan 08/08/22 21:[address] head wo con* [id number] Stat Cat Scan 08/08/22 21:[address] pelvis wo con [id number] Stat Cat Scan 08/08/22 21:54 Completed XR chest 1V portable [id number] Stat Exams 08/08/22 21:54 Completed XR femur RT min 2V* [id number] Stat Exams 08/09/22 00:34 Completed XR hip RT 2-3V wo/w pel* [id number] Routine Exams 08/10/22 Completed Pending at discharge Category Date Time Status Blood Culture Stat Lab 08/09/22 06:22 Results Urine Culture Stat Lab 08/09/22 09:39 Results Radiology Impressions Cervical Spine CT 08/08/22 21:54 IMPRESSION: 1. Lytic lesion with focal cortical destruction in the posterior C2 vertebral body concerning for a metastatic focus. 2. No acute fracture of the cervical spine. CT scan would be recommended if there is continuing clinical concern for fracture. 3. Multilevel degenerative changes of varying severity in the visualized spine. Moderate spinal canal stenosis at C3-C4, C4-C5, C5-C6, and C6-C7. Multilevel foraminal stenosis of varying severity in the visualized spine. 4. Large amount of fluid in the left mastoid air cells and fluid in the left middle ear cavity suspicious for otomastoiditis. 5. Extensive body wall edema. 6. Incidental/nonacute findings are listed in the report. ADDENDUM: 08/08/222327 Urgent results were discussed with JESSY Briceño on 08/08/2022 at 11:26 PM PHARMACY PICKING TECHNICIAN. Chest X-Ray 08/08/22 21:54 IMPRESSION: 1. No acute cardiopulmonary process. 2. Incidental/nonacute findings are listed in the report. Head CT 08/08/22 21:54 IMPRESSION: 1. No acute intracranial abnormality. 2. Left mastoid effusion. Pelvis CT 08/08/22 21:54 IMPRESSION: 1. Mildly comminuted and minimally displaced intertrochanteric fracture of the right femur. 2. Lytic lesion in the S1 segment of the sacrum in the midline concerning for a metastatic focus. 3. Findings suspicious for cirrhosis in the visualized liver. Large volume ascites suspicious for portal hypertension. 4. Partially visualized lesion in the right lobe of the liver concerning for a primary hepatocellular carcinoma or metastatic lesion. 5. Diffuse, moderate wall thickening of the bladder. In the correct clinical setting, this may suggest cystitis. Recommend correlation with laboratory findings. Alternatively, this may be secondary to chronic outlet obstruction. 6. Scattered diverticula in the sigmoid colon. No evidence for diverticulitis. 7. Extensive body wall edema. 8. Incidental/nonacute findings are listed in the report. ADDENDUM: 08/08/222327 Urgent results were discussed with JESSY Briceño on 08/08/2022 at 11:27 PM PHARMACY PICKING TECHNICIAN. Femur X-Ray 08/09/22 00:34 IMPRESSION: Nondisplaced intertrochanteric femoral fracture. Hip/Pelvis X-Ray 08/10/22 00:00 IMPRESSION: 1. Satisfactory ORIF involving an intertrochanteric fracture of the right hip. Laboratory Results WBC 11.7 10^3/uL (4.0-10.0) H 08/11/22 01:36 RBC 2.92 10^6/uL (4.1-5.3) L 08/11/22 01:36 Hgb 9.3 g/dL (11.5-15.3) L 08/11/22 01:36 Hct 28.5 % (37.0-47.0) L 08/11/22 01:36 MCV 97.6 fl (81-99) 08/11/22 01:36 MCH 31.8 pg (28.0-34.0) 08/11/22 01:36 MCHC 32.6 g/dL (30.0-36.0) 08/11/22 01:36 RDW 15.9 % (12.1-15.1) H 08/11/22 01:36 Plt Count 384 10^3/cmm (130-400) 08/11/22 01:36 MPV 9.9 fL (7.4-10.4) 08/11/22 01:36 Neut % (Auto) 82.6 % 08/11/22 01:36 Lymph % (Auto) 10.5 % 08/11/22 01:36 Patrick % (Auto) 6.2 % 08/11/22 01:36 Eos % (Auto) 0.1 % 08/11/22 01:36 Baso % (Auto) 0.3 % 08/11/22 01:36 Neut # (Auto) 9.65 10^3/uL (1.8-7.7) H 08/11/22 01:36 Lymph # (Auto) 1.2 10^3/uL (0.8-4.8) 08/11/22 01:36 Patrick # (Auto) 0.7 10^3/uL (0.2-0.9) 08/11/22 01:36 Eos # (Auto) 0.0 10^3/uL (0.0-0.8) 08/11/22 01:36 Baso # (Auto) 0.0 10^3/uL (0.0-0.1) 08/11/22 01:36 Nucleated RBC % (auto) 0 % 08/11/22 01:36 Nucleated RBCs # 0.0 /100WBC 08/11/22 01:36 PT 14.70 SECONDS (12.1-14.9) 08/09/22 06:22 INR 1.12 (0.8-1.2) 08/09/22 06:22 Sodium 133 mmol/L (136-145) L 08/11/22 01:36 Potassium 3.1 mmol/L (3.5-5.1) L 08/11/22 01:36 Chloride 94 mmol/L (98-107) L 08/11/22 01:36 Carbon Dioxide 32 mmol/L (22-29) H 08/11/22 01:36 Anion Gap 10.1 (5-19) 08/11/22 01:36 BUN 8 mg/dL (8-23) 08/11/22 01:36 Creatinine 0.4 mg/dL (0.5-0.9) L 08/11/22 01:36 GFR Calculation Not Reportable 08/11/22 01:36 Glucose 107 mg/dL (65-115) 08/11/22 01:36 Calculated Osmolality 275 mOsm/kg (285-295) L 08/11/22 01:36 Lactic Acid 1.0 mmol/L (0.5-2.2) 08/09/22 06:22 Calcium 7.9 mg/dL (8.5-10.5) L 08/11/22 01:36 Total Bilirubin 0.6 mg/dL (0.15-1.2) 08/08/22 23:08 AST 128 U/L (0-32) H 08/08/22 23:08 ALT 52 U/L (0-33) H 08/08/22 23:08 Alkaline Phosphatase 676 U/L (35-105) H 08/08/22 23:08 Ammonia 41 umol/L (11-51) 08/09/22 06:22 Creatine Kinase 81 U/L (26-192) 08/08/22 23:08 Troponin T Baseline 16 ng/L (0-10) H 08/09/22 06:22 Troponin T 120 Minute 16.35 ng/L (0-10) H 08/09/22 08:04 Delta Troponin T 0.35 ABS# (0-10) 08/09/22 08:04 Troponin T Hi Sens 6Hr 15.94 ng/L (0-10) H 08/09/22 12:12 Troponin T Hi Sens 6Hr Delta -0.06 ng/L (0-12) L 08/09/22 12:12 C-Reactive Protein 14.3 mg/L (0.0-4.9) H 08/09/22 06:22 NT-Pro-B Natriuret Pep 4587 pg/mL (0-450) H 08/09/22 06:22 Total Protein 6.7 g/dL (6.6-8.7) 08/08/22 23:08 Albumin 3.8 g/dL (3.5-5.2) 08/08/22 23:08 Globulin 2.9 g/dL (1.3-4.6) 08/08/22 23:08 Procalcitonin 0.38 ng/mL (0-0.5) 08/09/22 06:22 TSH 78.71 uIU/mL (0.27-4.20) H 08/09/22 06:22 Urine Color Yellow (Yellow) 08/09/22 09:39 Urine Appearance Clear (CLEAR) 08/09/22 09:39 Urine pH 6 (5-7) 08/09/22 09:39 Ur Specific [place] 1.020 (1.005-1.030) 08/09/22 09:39 Urine Protein Neg (Negative) 08/09/22 09:39 Urine Glucose (UA) Norm (Normal) 08/09/22 09:39 Urine Ketones Negative (Negative) 08/09/22 09:39 Urine Blood 2+ (Negative) H 08/09/22 09:39 Urine Nitrate Negative (Negative) 08/09/22 09:39 Urine Bilirubin Neg (Negative) 08/09/22 09:39 Urine Urobilinogen 1 mg/dL (Negative) H 08/09/22 09:39 Ur Leukocyte Esterase Trace (Negative) H 08/09/22 09:39 Urine RBC 0-4 /hpf (0-2) H 08/09/22 09:39 Urine WBC 0-4 /hpf (0-5) H 08/09/22 09:39 Ur Squamous Epith Cells 0-4 /hpf (0-5) H 08/09/22 09:39 Amorphous Sediment Not Reportable 08/09/22 09:39 Urine Bacteria Trace /hpf (NONE) 08/09/22 09:39 Vitals Last Vital Signs Temp 97.6 F 08/11/22 04:00 Pulse 80 08/11/22 09:20 Resp 16 08/11/22 09:18 BP 147/71 08/11/22 04:00 Pulse Ox 99 08/11/22 09:18 O2 Del Method 08/11/22 09:18 O2 Flow Rate 2 08/11/22 09:18 Discharge Plan Discharge Patient Disposition: Hospice - Home Condition: Stable Prescriptions: New aspirin 325 mg Tablet,Delayed Release (Dr/Ec) 325 mg PO DAILY Qty: 45 0RF Continued vitamin E 1,000 unit Capsule 1,000 unit PO DAILY citalopram 10 mg Tablet 10 mg PO DAILY alprazolam [Xanax] 0.25 mg Tablet 0.5 mg PO TID PRN (Reason: Anxiety) albuterol sulfate 90 mcg/actuation Hfa Aerosol Inhaler 2 puff INHALATION 6XD PRN (Reason: Shortness Of Breath) [id number] Tablet 1 tab PO DAILY Stiolto Respimat 2.5-2.5 mcg/actuation Mist 2 puff INHALATION DAILY trazodone 50 mg Tablet 50 mg PO BEDTIME Zofran 4 mg Tablet 4 - 8 mg PO Q4H PRN (Reason: Nausea) fentanyl 100 mcg/hr patch 72 hour 100 mcg topical Q72H omeprazole 20 mg Capsule,Delayed Release(Dr/Ec) 20 mg PO DAILY gabapentin 100 mg Capsule 300 mg PO BEDTIME scopolamine base 1 mg over 3 days Patch 3 Day 1 patch TRANSDERMAL Q72H PRN (Reason: Nausea) Flovent HFA 110 mcg/actuation HFA aerosol inhaler 2 puff INHALATION BID PRN (Reason: Shortness Of Breath) oxycodone 10 mg Tablet 10 - 20 mg PO Q4H PRN (Reason: Pain) Discharge Orders: Discharge Order (Routine); Ordered 08/11/22 Ordered By: Quang Zhong Discharge Diet: Regular Discharge Activity: Increase activity as tolerated Patient Instructions: Hip Fracture (GEN), Post Anesthesia Care Activity Restrictions/Additional Instructions: Keep follow-up with hospice services Weightbearing and wound care per orthopedic surgeon Aspirin 325 mg once daily for 6 weeks Resume your 2 to 4 L of oxygen, baseline requirement, that you have been getting on hospice Patient's Health Concerns: Hip fracture Assessment: Status post prepare Plan of Treatment: Resume hospice Discharge Attestations Time Spent in Discharge Care*: greater than 30 min Quality Metrics Clinical Quality Measures [ No reported AMI, CVA or VTE this stay] Coding Level of Care Code Acute g FW NE note Diagnoses Closed right hip fracture S72.001A Hepatocellular carcinoma C22.0 Cancer cachexia R64 Fall W19.XXXA History of COPD Z87.09 Hyponatremia E87.1
--- NOTE | 2022-08-11 12:06 | PM.PN ---
Subjective Subjective: Ms. Cam is sitting up in a chair waiting for discharge to home. Her son is coming to pick her up for she will be at home with home hospice. Medications: Reviewed: Yes Vitals/I&O/Wt Last Vital Signs Temp 97.3 F L 08/11/22 08:00 Pulse 80 08/11/22 09:20 Resp 18 08/11/22 09:49 BP 152/79 08/11/22 08:00 Pulse Ox 99 08/11/22 09:18 O2 Del Method 08/11/22 09:18 O2 Flow Rate 2 08/11/22 09:18 08/10/22 08/11/22 08/11/22 22:59 06:59 14:59 Intake Total 530 / 1636.75 845 / 2481.75 170 / 170 Output Total 1550 / 2250 Balance 530 / 936.75 -705 / 231.75 170 / 170 Weight last 48 hrs Weight 89 lb Physical Exam Const: COMMON NORMALS: no acute distress, patient oriented x3 and alert GENERAL APPEARANCE: cooperative and comfortable NUTRITIONAL APPEARANCE: underweight ORIENTATION/CONSCIOUSNESS: Yes awake HENMT: COMMON NORMALS: normocephalic and atraumatic HEAD & SCALP: normocephalic and atraumatic Eye: GENERAL EYE: appearance normal, both eyes and all related structures Chest: COMMONS NORMALS: normal inspection of the chest Resp: COMMON NORMALS: normal respiratory effort EFFORT & INSPECTION: Yes able to speak in complete sentences and Yes symmetric chest movement Extremity: RIGHT LOWER EXTREMITY: Yes hip joint (Dressing is dry and intact.) Right hip: Yes inspection (Minimal to no swelling.), Yes palpation (No tenderness to palpation.) and Yes neurovascular exam (Intact distally with no evidence of DVT) Neuro: COMMON NORMALS: patient oriented x3 SENSORIUM/ORIENTATION: Yes alert Psych: COMMON NORMALS: mental status grossly normal APPEARANCE: Yes grossly normal ATTITUDE: Yes calm and Yes engaged ATTENTION/CONCENTRATION: Yes attention grossly intact Skin: COMMON NORMALS: no rashes or lesions noted GENERAL SKIN EXAM: no rashes or lesions noted Urinary Catheter Management: Baeza: Cath Placed During This Visit: yes, but has since been removed by the nurse Reason for Continuing Indwelling Catheter: Decision to DC Catheter Urinary Catheter Date of Insertion: 08/09/22 Urinary Catheter Time of Insertion: 02:38 Date Urinary Catheter Removed: 08/11/22 Time Urinary Catheter Discontinued: 05:04 Data 08/11/22 01:36 08/11/22 01:36 Micro: Microbiology 08/09/22 09:39 Urine Culture - Final Urine Catheterized 08/09/22 06:22 Blood Culture - Preliminary Blood NEGATIVE TO DATE 08/09/22 06:20 Blood Culture - Preliminary Blood NEGATIVE TO DATE A&P Assessment and plan (1) Closed intertrochanteric fracture of right hip: Patient was admitted through the emergency department with diagnosis of a left intertrochanteric hip fracture. 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 After discussion, she wished to proceed with surgical intervention. Therefore, the patient underwent open reduction internal fixation of her left intertrochanteric hip fracture uneventfully. She is now ready for discharge to home. She will be weightbearing as tolerated on this lower extremity. Attestations Medical Necessity Statement*: Ready for discharge home today. Coding Level of Care Code Acute Code for [facility] Diagnoses Closed intertrochanteric fracture of right hip S72.141A
[2022-08-11] MEDS: morphine 4 mg/mL SDV 1 mL 2 MG IVP (12:11)
== END 2022-08-11 15:00 | disposition hospice, home (50) | DRG 481 ==
LOC: ER 08-09 00:22 → MEDSURG 08-09 00:58
PROVIDERS: Specialist; Admitting Provider Family Medicine; Emergency Provider Emergency Medicine; Visit Provider Internal Medicine
PROC: 0QH636Z Insertion of Intramedullary Internal Fixation Device into Right Upper Femur, Percutaneous Approach (ICD-10-PCS; CPT 27245; principal; 2022-08-10 10:10)
DX: S72.144A Nondisplaced intertrochanteric fracture of right femur, initial encounter for closed fracture (principal); C22.0 Liver cell carcinoma; C79.51 Secondary malignant neoplasm of bone; E87.1 Hypo-osmolality and hyponatremia; E44.0 Moderate protein-calorie malnutrition; Z68.1 Body mass index [BMI] 19.9 or less, adult; K76.6 Portal hypertension; R18.8 Other ascites; W18.30XA Fall on same level, unspecified, initial encounter; J44.9 Chronic obstructive pulmonary disease, unspecified; Z79.51 Long term (current) use of inhaled steroids; Z79.891 Long term (current) use of opiate analgesic; Z92.21 Personal history of antineoplastic chemotherapy; K21.9 Gastro-esophageal reflux disease without esophagitis; F17.200 Nicotine dependence, unspecified, uncomplicated; G89.3 Neoplasm related pain (acute) (chronic); Z66 Do not resuscitate; K74.60 Unspecified cirrhosis of liver
CPT/HCPCS: 36415; 51702; 70450; 71045; 72125; 72192; 73502; 73552; 76000; 80048; 80053; 81001; 81003; 82140; 82550; 83605; 83880; 84145; 84443; 84484; 85025; 85610; 86140; 87040; 87086; 93005; 94640; 94664; 96374; 97116; 97161; 97165; 97530; 99285; C1713; C9113; J0330; J0690; J1170; J2270; J2405; J2704; J3010; J3490; J7030; J7042; J7613; J7626; J7644